=== PATIENT | male | born 1950 | race Hispanic/Latino ===

== ENCOUNTER 2016-09-01 11:08 | Inpatient (IN) | payer MEDICARE, MEDICAID ==
--- NOTE | 2016-09-01 11:42 | ED PDOC ---
HPI: General Adult Time Seen by Provider: 09/01/16 11:22 Chief Complaint (Nursing): Flu-like Symptoms Chief Complaint (Provider): shortness of breath History Per: Patient History/Exam Limitations: no limitations Additional Complaint(s): 65yo male comes to the ED complaining of shortness of breath and fever at home for 2-3 days. Also reports cough with green sputum, body aches, runny nose, sore throat. No chest pain, vomit, diarrhea. PMD: None Past Medical History Reviewed: Historical Data, Nursing Documentation, Vital Signs Vital Signs: Last Vital Signs Temp 98.4 F 09/01/16 15:55 Pulse 79 09/01/16 15:55 Resp 19 09/01/16 15:55 BP 100/52 L 09/01/16 15:55 Pulse Ox 95 09/01/16 15:55 - Medical History PMH: Asthma, COPD Other PMH: "bubble on right lung for 3 year" - Surgical History Other surgeries: pneumothorax - Family History Family History: States: Unknown Family Hx - Social History Drugs: Denies - Immunization History Hx Tetanus Toxoid Vaccination: No Hx Influenza Vaccination: No Hx Pneumococcal Vaccination: No - Home Medications Home Medications: Ambulatory Orders Medication Instructions Recorded Albuterol Sulfate [Albuterol Hfa] 0.09 mg IH BID #60 puff 06/29/14 Albuterol HFA [Ventolin HFA 90 2 puff IH [id number] #60 puff 07/29/16 mcg/actuation (8 g)] Fluticasone/Salmeterol 250/50 1 puff IH Q12 #28 puff 07/29/16 [Advair Diskus] - Allergies Allergies/Adverse Reactions: Allergies Allergy/AdvReac Type Severity Reaction Status Date / Time No Known Allergies Allergy Verified 07/29/16 11:30 Review of Systems ROS Statement: Except As Marked, All Systems Reviewed And Found Negative ENT: Positive for: Nose Discharge, Throat Pain Cardiovascular: Negative for: Chest Pain Respiratory: Positive for: Cough, Sputum Gastrointestinal: Negative for: Vomiting, Diarrhea Physical Exam - Reviewed Nursing Documentation Reviewed: Yes Vital Signs Reviewed: Yes - Physical Exam Appears: Positive for: Well, Non-toxic, No Acute Distress Head Exam: Positive for: ATRAUMATIC, NORMAL INSPECTION, NORMOCEPHALIC Skin: Positive for: Warm, Dry Eye Exam: Positive for: EOMI, PERRL Cardiovascular/Chest: Positive for: Tachycardia. Negative for: Murmur, Irregularly Irregular Respiratory: Positive for: Wheezing (occasional, bilateral). Negative for: Rales, Rhonchi Gastrointestinal/Abdominal: Positive for: Soft. Negative for: Tenderness Extremity: Positive for: Normal ROM Neurologic/Psych: Positive for: Alert, Oriented - Laboratory Results Result Diagrams: 09/01/16 12:00 09/01/16 12:00 - ECG ECG: Positive for: Interpreted By Me, Viewed By Me ECG Rhythm: Positive for: Normal QRS, Sinus Tachycardia. Negative for: ST/T Changes Rate: 119 O2 Sat by Pulse Oximetry: 88 - Radiology X-Ray: Interpreted by Me, Viewed By Me X-Ray Interpretation: Infiltrates (right lower lobe), Other (+chronic right lung bleb) Medical Decision Making Medical Decision Makin Differential includes pneumonia, influenza, COPD exacerbation, plan: EKG, labs, CXR, tylenol, solumedrol, duoneb ordered. [address] Fonseca medicine inclusion special education teacher for placement in Med/Surg. Dx pneumonia Disposition - Clinical Impression Clinical Impression: Pneumonia, COPD with acute exacerbation - Patient ED Disposition Is Patient to be Admitted: Yes Doctor Will See Patient In The: Hospital Counseled Patient/Family Regarding: Studies Performed, Diagnosis - Disposition Disposition Time: 14:48 Condition: FAIR - Pt Status Changed To: Hospital Disposition Of: Inpatient - Admit Certification Admit to Inpatient:: After my assessment, the patient will require hospitalization for at least two midnights. This is because of the severity of symptoms shown, intensity of services needed, and/or the medical risk in this patient being treated as an outpatient. - POA Present On Arrival: None Core Measure Indicators: Pneumonia Additional Comments - Additional Comments Additional Comments: Scribe Attestation Documented by Bernard Navarro, acting as a scribe for Néstor Quintero MD. Provider Scribe Attestation All medical record entries made by the Scribe were at my direction and personally dictated by me. I have reviewed the chart and agree that the record accurately reflects my personal performance of the history, physical exam, medical decision making, and the department course for this patient. I have also personally directed, reviewed, and agree with the discharge instructions and disposition.
[2016-09-01] MEDS ORDERED: Albuterol-Ipratrop 3 mg / 0.5 (3 ml) UD INH STA (11:47)
[2016-09-01] MEDS ORDERED: Albuterol-Ipratrop 3 mg / 0.5 (3 ml) UD ONE (12:14)
[2016-09-01 12:16] LABS: BASO % 0.6 % (0.0-2.0); HEMATOCRIT 43.3 % (35.0-51.0); LYMPH # 0.4 K/uL (1.0-4.3); LYMPH % 6.5 % (20.0-40.0); MEAN CELL VOLUME 87.3 fl (80.0-94.0); MEAN CORPUSCULAR HEMOGLOBIN 28.5 pg (27.0-31.0); MEAN CORPUSCULAR HGB CONC 32.6 g/dL (33.0-37.0); MEAN PLATELET VOLUME 8.3 fl (7.2-11.7); MONO # 0.4 K/uL (0.0-0.8); MONO % 7.2 % (0.0-10.0); NEUT # 5.2 K/uL (1.8-7.0); NEUT % 85.7 % (50.0-75.0); NRBC % 0.1 % (0.0-0.0); WHITE BLOOD COUNT 6.1 K/uL (4.8-10.8)
[2016-09-01 12:20] LABS: BLOOD UREA NITROGEN 10 mg/dl (9-20); CALCIUM 9.1 mg/dL (8.4-10.2); CARBON DIOXIDE 28 mmol/L (22-30); CHLORIDE 102 mmol/L (98-107); GFR AFRICAN-AMERICAN > 60; GLUCOSE,RANDOM 100 mg/dL (75-110); POTASSIUM 4.2 MMOL/L (3.6-5.0); SODIUM 144 mmol/l (132-148)
[2016-09-01 12:33] LABS: PLATELET COUNT 113 K/uL (130-400)
--- NOTE | 2016-09-01 15:31 | RAD ---
HISTORY: dyspnea COMPARISON: 07/29/2016 TECHNIQUE: Chest PA and lateral FINDINGS: LUNGS: Re-demonstration of severe right upper lung field bullous disease. PLEURA: No significant pleural effusion identified. No pneumothorax apparent. CARDIOVASCULAR: Normal. OSSEOUS STRUCTURES: No significant abnormalities. VISUALIZED UPPER ABDOMEN: Normal. OTHER FINDINGS: None. IMPRESSION: Re-demonstration of severe right upper lung field bullous disease.
[2016-09-01 16:44] LABS: TOTAL CELLS COUNTED 100
[2016-09-01 16:45] LABS: EOSINOPHIL 1 % (0-7); NEUTROPHIL 84 % (42-75)
[2016-09-01] MEDS: methylPREDNISolone 60 MG in Sodium Chloride 0.9% 50 ML IVPB SCH (23:00)
[2016-09-02] MEDS: Albuterol-Ipratrop 3 mg / 0.5 (3 ml) UD INH SCH ×4 (01:08→19:04)
[2016-09-02] MEDS: methylPREDNISolone 60 MG in Sodium Chloride 0.9% 50 ML IVPB SCH ×4 (05:08→21:57)
[2016-09-02] MEDS: Enoxaparin 40 mg Syringe SC SCH (09:05)
[2016-09-02] MEDS ORDERED: Sodium Chloride 3% for Inhalation 4 ML VIAL.NEB IH PRN (09:20)
[2016-09-02] MEDS: Pantoprazole 40 mg EC Tab PO SCH (10:38)
[2016-09-02] MEDS ORDERED: Iohexol 300 100 ML IJ ONE (15:35)
[2016-09-02] MEDS ORDERED: Sodium Chloride 0.9% 50 ML IV ONE (15:42)
--- NOTE | 2016-09-02 16:56 | HP ---
CHIEF COMPLAINT: Shortness of breath. HISTORY OF PRESENT ILLNESS: This is a 65-year-old male who was feeling sick for a few days and then was having cough, sore throat, green sputum, generalized body aches, malaise and then patient started having shortness of breath, so patient was brought to the Emergency Room and was admitted for furthe r management. REVIEW OF SYSTEMS: Positive for fever, malaise, generalized weakness, cough, sore throat, yellow spu yany. Review of systems otherwise is negative for headache, dizziness, syncope, loss of consciousness , chest pain, nausea, vomiting, diarrhea, constipation, any new joint or extremity pain. Review of s ystems of all other organ systems is unremarkable. PAST MEDICAL HISTORY: Significant for bronchial asthma, COPD. PAST SURGICAL HISTORY: Unremarkable, except pneumothorax. PERSONAL HISTORY: The patient is currently smoking. No alcohol or substance abuse. MEDICATIONS: The patient is on albuterol and fluticasone. ALLERGIES: The patient is not allergic to any medication. FAMILY HISTORY: Noncontributory. PHYSICAL EXAMINATION: GENERAL: Malnourished looking 65-year-old male in no acute distress. VITAL SIGNS: Temperature 97.2, pulse 66, respirations 20, blood pressure 97/64, saturation 99%. HEENT: The patient has . Pupils reacting to light. No nystagmus. Normocephalic, atraumatic s kull. NECK: No JVD, no thyromegaly, no lymphadenopathy. HEART: S1, S2 normal, regular. No significant m urmur, gallop or rub is heard. LUNGS: Shows posterior, the patient has left lower lobe crepitations. Shows good bilateral air entr y. rales or rhonchi. ABDOMEN: Soft, nontender, no organomegaly, no fluid. Bowel sounds are plus. EXTREMITIES: No edema, no calf swelling, no tenderness, no acute ischemia. CENTRAL NERVOUS SYSTEM: The patient is alert, awake, oriented x 3. There is no sign of any acute gr oss focal motor or sensory neurological deficit. DIAGNOSTIC DATA: Includes chest x-ray which shows right lung emphysema and bleb. ADMITTING IMPRESSION: Left lower lobe pneumonia, upper respiratory tract infection, chronic obstruct courtney pulmonary disease. PLAN: As ordered. Case and plan discussed with patient. Ronald Fonseca MD cc: [id number] TT: 09/02/2016 16:55:13 [facility] # [id number] mn
[2016-09-03] MEDS: Albuterol-Ipratrop 3 mg / 0.5 (3 ml) UD INH SCH ×4 (01:00→19:53)
[2016-09-03] MEDS: methylPREDNISolone 60 MG in Sodium Chloride 0.9% 50 ML IVPB SCH ×4 (03:59→22:05)
[2016-09-03 07:06] LABS: ALB/GLOB RATIO 1.3 (1.0-2.1); ALKALINE PHOSPHATASE 52 U/L (38-126); ALT/SGPT 28 U/L (21-72); AST/SGOT 20 U/L (17-59); BILIRUBIN,TOTAL 0.3 mg/dl (0.2-1.3); BLOOD UREA NITROGEN 16 mg/dl (9-20); CALCIUM 9.2 mg/dL (8.4-10.2); CARBON DIOXIDE 24 mmol/L (22-30); CHLORIDE 105 mmol/L (98-107); GFR AFRICAN-AMERICAN > 60; GLUCOSE,RANDOM 156 mg/dL (75-110); POTASSIUM 4.2 MMOL/L (3.6-5.0); SODIUM 143 mmol/l (132-148); TOTAL PROTEIN 6.7 G/DL (6.3-8.2)
[2016-09-03 07:08] LABS: HEMATOCRIT 38.3 % (35.0-51.0); MEAN CELL VOLUME 86.1 fl (80.0-94.0); MEAN CORPUSCULAR HEMOGLOBIN 28.7 pg (27.0-31.0); MEAN CORPUSCULAR HGB CONC 33.3 g/dL (33.0-37.0); RED CELL DISTRIBUTION WIDTH 13.1 % (11.5-14.5); WHITE BLOOD COUNT 11.9 K/uL (4.8-10.8)
--- NOTE | 2016-09-03 08:08 | CARD ---
APPROVED REPORT EKG Measurement Heart [id number] <Conclusion> Sinus tachycardia Otherwise normal ECG
[2016-09-03] MEDS: Enoxaparin 40 mg Syringe SC SCH (09:05)
[2016-09-03] MEDS: Pantoprazole 40 mg EC Tab PO SCH (09:06)
--- NOTE | 2016-09-03 10:34 | PN ---
DATE: 09/03/2016 The patient seen and examined. Interim events noted. The patient feels better, breathing improved. Chest pain decreased, coughing less, able to ambulate a little more to the bathroom and around the h all. PHYSICAL EXAMINATION: GENERAL: The patient is in no acute distress. VITAL SIGNS: Stable. HEART: S1, S2 normal, regular. LUNGS: Good bilateral air exchange. ABDOMEN: Soft, nontender. EXTREMITIES: No edema, no calf swelling, no tenderness. No acute ischemia. CENTRAL NERVOUS SYSTEM: Essentially unchanged. LUNGS: Some posterior increased breath sounds and crepitations. DIAGNOSTIC DATA: Available diagnostic data reviewed. CAT scan is done. Results are pending. HIV t est is negative. Overall, patient's general medical condition is slowly improving. PLAN: As ordered. Ronald Fonseca MD cc: [id number] TT: 09/03/2016 10:34:01 Confirmation # [id number] Dictation # [id number] mn
--- NOTE | 2016-09-03 11:12 | CT ---
PROCEDURE: CT Chest with contrast HISTORY: pna COMPARISON: Comparison is made to the previous chest x-ray dated 09/01/2016 TECHNIQUE: Contiguous axial images were obtained through the chest with intravenous contrast enhancement. Sagittal and coronal reconstructions were performed. IV contrast: 90 mL of Omnipaque 300 Radiation dose (DLP): 293.87 mGy-cm. FINDINGS: LUNGS: There are severe emphysematous changes predominant in the upper lobe lobes associated with large bullae especially at the right mid and upper peripheral chest. There are patchy airspace consolidation at the right lower lobe highly suspicious for pneumonia. MEDIASTINUM: The thoracic aorta is ectatic and tortuous. Normal sized heart. Main pulmonary artery unremarkable. No vascular congestion. No lymphadenopathy. PLEURA: Trace right pleural effusion is noted. BONES: No fracture. No destructive lesion. UPPER ABDOMEN: Grossly unremarkable. OTHER FINDINGS: None. IMPRESSION: Severe emphysema predominant in the upper lobes associated with large bullae particularly at the right chest. Foci of airspace consolidation seen at the right lower lobe suspicious for pneumonia. Small neoplasm is not totally excluded. Follow-up study after treatment is suggested to document complete resolving of these consolidation. Trace right pleural effusion.
[2016-09-04] MEDS: Albuterol-Ipratrop 3 mg / 0.5 (3 ml) UD INH SCH ×4 (01:30→19:34)
[2016-09-04] MEDS: methylPREDNISolone 60 MG in Sodium Chloride 0.9% 50 ML IVPB SCH (04:56)
[2016-09-04 08:14] LABS: HEMATOCRIT 39.6 % (35.0-51.0); MEAN CORPUSCULAR HEMOGLOBIN 28.8 pg (27.0-31.0); MEAN CORPUSCULAR HGB CONC 33.1 g/dL (33.0-37.0); RED CELL DISTRIBUTION WIDTH 13.4 % (11.5-14.5)
[2016-09-04] MEDS: Pantoprazole 40 mg EC Tab PO SCH (08:33)
[2016-09-04] MEDS: Enoxaparin 40 mg Syringe SC SCH (08:33)
[2016-09-04 08:35] LABS: ALB/GLOB RATIO 1.4 (1.0-2.1); ALKALINE PHOSPHATASE 66 U/L (38-126); ALT/SGPT 35 U/L (21-72); AST/SGOT 34 U/L (17-59); BILIRUBIN,TOTAL 0.3 mg/dl (0.2-1.3); BLOOD UREA NITROGEN 14 mg/dl (9-20); CALCIUM 9.5 mg/dL (8.4-10.2); CARBON DIOXIDE 25 mmol/L (22-30); CHLORIDE 106 mmol/L (98-107); GFR AFRICAN-AMERICAN > 60; GLUCOSE,RANDOM 121 mg/dL (75-110); POTASSIUM 4.3 MMOL/L (3.6-5.0); SODIUM 146 mmol/l (132-148); TOTAL PROTEIN 6.4 G/DL (6.3-8.2)
--- NOTE | 2016-09-04 08:58 | CP.PCM.PN ---
Subjective - Date & Time of Evaluation Date of Evaluation: 09/04/16 Time of Evaluation: 08:00 - Subjective Subjective: pt seen and examined at bedside this morning, states he feels a lot better, breathing a lot easier. does not have any complaints Objective - Vital Signs/Intake and Output Vital Signs (last 24 hours): Temp Pulse Resp BP Pulse Ox 98.1 F 83 18 123/76 95 09/04/16 08:18 09/04/16 08:18 09/04/16 08:18 09/04/16 08:18 09/04/16 08:18 - Medications Medications: Current Medications Acetaminophen (Tylenol 325mg Tab) 325 mg PO Q4 PRN PRN Reason: Fever >100.4 F Acetaminophen (Tylenol 325mg Tab) 650 mg PO Q4 PRN PRN Reason: Pain, Mild (1-3) Albuterol/Ipratropium (Duoneb 3 Mg/0.5 Mg (3 Ml) Ud) 3 ml INH RQ6 [facility] Last Admin: 09/04/16 07:42 Dose: 3 ml Enoxaparin Sodium (Lovenox) 40 mg SC DAILY [facility] PRN Reason: Protocol Last Admin: 09/04/16 08:33 Dose: 40 mg Levofloxacin/Dextrose (Levaquin 500mg) 100 mls @ 100 mls/hr IVPB DAILY [facility] Last Admin: 09/04/16 08:33 Dose: 100 mls/hr Pantoprazole Sodium (Protonix Ec Tab) 40 mg PO DAILY [facility] Last Admin: 09/04/16 08:33 Dose: 40 mg Prednisone (Prednisone Tab) 40 mg PO DAILY [facility] - Labs Labs: 09/04/16 07:45 09/04/16 07:45 - Constitutional Appears: Non-toxic, No Acute Distress - Head Exam Head Exam: NORMOCEPHALIC - Eye Exam Eye Exam: Normal appearance - ENT Exam ENT Exam: Mucous Membranes Moist - Respiratory Exam Respiratory Exam: Clear to Ausculation Bilateral, NORMAL BREATHING PATTERN. absent: Rhonchi, Wheezes - Cardiovascular Exam Cardiovascular Exam: REGULAR RHYTHM, +S1, +S2 - GI/Abdominal Exam GI & Abdominal Exam: Soft, Normal Bowel Sounds - Extremities Exam Extremities Exam: absent: Calf Tenderness, Pedal Edema - Neurological Exam Neurological Exam: Alert, Awake, Oriented x3 Assessment and Plan - Assessment and Plan (Free Text) Assessment: 65 y/o male with history of COPD admitted for pneumonia (CAP) Plan: SOB most likely due to Pneumonia and underlying COPD Steriod taper Continue antibiotic respiratory treatments as needed Diet- regular DVT prophylaxis- Lovenox
[2016-09-04] MEDS ORDERED: methylPREDNISolone 60 MG in Sodium Chloride 0.9% 50 ML IVPB SCH (09:00)
[2016-09-05] MEDS: Albuterol-Ipratrop 3 mg / 0.5 (3 ml) UD INH SCH ×2 (01:00→07:29)
[2016-09-05 08:04] VITALS: BP 127/73; RESP 20; TEMP 97.8
[2016-09-05] MEDS: Enoxaparin 40 mg Syringe SC SCH (09:22)
[2016-09-05] MEDS: Pantoprazole 40 mg EC Tab PO SCH (09:23)
[2016-09-05 10:58] VITALS: PULSE 98; O2SAT 96
--- NOTE | 2016-09-05 12:53 | CP.PCM.DIS ---
Provider - Provider Date of Admission: 09/01/16 14:46 Attending physician: Ronald Fonseca MD Time Spent in preparation of Discharge (in minutes): 30 Diagnosis - Discharge Diagnosis (1) Pneumonia Status: Acute Hospital Course - Lab Results Lab Results: Micro Results 09/02/16 08:16 Sputum Gram Stain - Final 09/02/16 08:16 Sputum Sputum Culture - Final Yeast Species Most Recent Lab Values WBC 12.0 K/uL (4.8-10.8) H 09/04/16 07:45 RBC 4.55 Mil/uL (4.40-5.90) 09/04/16 07:45 Hgb 13.1 g/dL (12.0-18.0) 09/04/16 07:45 Hct 39.6 % (35.0-51.0) 09/04/16 07:45 MCV 87.0 fl (80.0-94.0) 09/04/16 07:45 MCH 28.8 pg (27.0-31.0) 09/04/16 07:45 MCHC 33.1 g/dL (33.0-37.0) 09/04/16 07:45 RDW 13.4 % (11.5-14.5) 09/04/16 07:45 Plt Count 151 K/uL (130-400) 09/04/16 07:45 MPV 8.3 fl (7.2-11.7) 09/01/16 12:00 Neut % (Auto) 85.7 % (50.0-75.0) H 09/01/16 12:00 Lymph % (Auto) 6.5 % (20.0-40.0) L 09/01/16 12:00 Sanders % (Auto) 7.2 % (0.0-10.0) 09/01/16 12:00 Eos % (Auto) 0.0 % (0.0-4.0) 09/01/16 12:00 Baso % (Auto) 0.6 % (0.0-2.0) 09/01/16 12:00 Neut # 5.2 K/uL (1.8-7.0) 09/01/16 12:00 Lymph # 0.4 K/uL (1.0-4.3) L 09/01/16 12:00 Sanders # 0.4 K/uL (0.0-0.8) 09/01/16 12:00 Eos # 0.0 K/uL (0.0-0.7) 09/01/16 12:00 Baso # 0.0 K/uL (0.0-0.2) 09/01/16 12:00 Neutrophils % (Manual) 84 % (42-75) H 09/01/16 12:00 Band Neutrophils % 2 % (0-2) 09/01/16 12:00 Lymphocytes % (Manual) 7 % (20-50) L 09/01/16 12:00 Monocytes % (Manual) 6 % (0-10) 09/01/16 12:00 Eosinophils % (Manual) 1 % (0-7) 09/01/16 12:00 Platelet Estimate Decreased (NORMAL) L 09/01/16 12:00 RBC Morphology Normal (NORMAL) 09/01/16 12:00 Sodium 146 mmol/l (132-148) 09/04/16 07:45 Potassium 4.3 MMOL/L (3.6-5.0) 09/04/16 07:45 Chloride 106 mmol/L (98-107) 09/04/16 07:45 Carbon Dioxide 25 mmol/L (22-30) 09/04/16 07:45 Anion Gap 19 (10-20) 09/04/16 07:45 BUN 14 mg/dl (9-20) 09/04/16 07:45 Creatinine 0.6 mg/dL (0.8-1.5) L 09/04/16 07:45 Est GFR ( Amer) > 60 09/04/16 07:45 Est GFR (Non-Af Amer) > 60 09/04/16 07:45 Random Glucose 121 mg/dL (75-110) H 09/04/16 07:45 Calcium 9.5 mg/dL (8.4-10.2) 09/04/16 07:45 Total Bilirubin 0.3 mg/dl (0.2-1.3) 09/04/16 07:45 AST 34 U/L (17-59) 09/04/16 07:45 ALT 35 U/L (21-72) 09/04/16 07:45 Alkaline Phosphatase 66 U/L (38-126) 09/04/16 07:45 Total Protein 6.4 G/DL (6.3-8.2) 09/04/16 07:45 Albumin 3.8 g/dL (3.5-5.0) 09/04/16 07:45 Globulin 2.7 gm/dL (2.2-3.9) 09/04/16 07:45 Albumin/Globulin Ratio 1.4 (1.0-2.1) 09/04/16 07:45 HIV-1 Ab Rapid Screen Non reactive (NON REAC) 09/02/16 10:20 Influenza Typ A,B (EIA) Negative for flu a/b (NEGATIVE) 09/01/16 12:00 - Hospital Course Hospital Course: Pt was admitted for CAP started on antibiotic and steriod given history of COPD. remain stable throughout stay. is being discharged with steriod taper and antibiotics. Discharge Exam - Head Exam Head Exam: NORMOCEPHALIC - Eye Exam Eye Exam: Normal appearance Pupil Exam: NORMAL ACCOMODATION - ENT Exam ENT Exam: Mucous Membranes Moist - Respiratory Exam Respiratory Exam: NORMAL BREATHING PATTERN - Cardiovascular Exam Cardiovascular Exam: REGULAR RHYTHM, +S1, +S2 - GI/Abdominal Exam GI & Abdominal Exam: Normal Bowel Sounds, Soft - Neurological Exam Neurological exam: Alert, CN II-XII Intact, Oriented x3 Discharge Plan - Discharge Medications Prescriptions: Levofloxacin [Levaquin] 500 mg PO DAILY #6 tablet Methylprednisolone [Medrol Dose Pack (21 tabs)] 4 mg PO DAILY #21 mg Pantoprazole [Protonix EC Tab] 40 mg PO DAILY #14 ect - Follow Up Plan Condition: FAIR Disposition: HOME/ ROUTINE Instructions: Community Acquired Pneumonia (DC) Additional Instructions: Please follow up with your PCP in 1-2weeks
== END 2016-09-05 13:53 | disposition home or self-care (01) | DRG 190 ==
LOC: H.ER 11:08 → H.ERHOLD 14:46 → H.MEDSURG1 20:35
PROVIDERS: ADMIT Internal Medicine; ATTEND Internal Medicine
DX: J44.0 Chronic obstructive pulmonary disease with (acute) lower respiratory infection (principal); J18.9 Pneumonia, unspecified organism; J45.909 Unspecified asthma, uncomplicated

== ENCOUNTER 2016-09-22 01:36 | Emergency (ER) | payer SELFPAY ==
[2016-09-22 01:58] VITALS: BP 123/76; PULSE 95; RESP 19; TEMP 98.2
[2016-09-22] MEDS ORDERED: Albuterol-Ipratrop 3 mg / 0.5 (3 ml) UD INH STA ×2 (02:28→02:29)
--- NOTE | 2016-09-22 02:35 | ED PDOC ---
HPI: SOB/CHF/COPD Time Seen by Provider: 09/22/16 01:56 Chief Complaint (Nursing): Shortness Of Breath Chief Complaint (Provider): SOB History Per: Patient History/Exam Limitations: no limitations Onset/Duration Of Symptoms: Days (2) Current Symptoms Are (Timing): Other (worse) Initiating Event: Out Of Medications (ran out of meds) Current Respiratory Medications: See Home Med List Pain Scale Rating Of: 0 Associated Symptoms: denies: Fever, Chest Pain, Productive Cough, Heart Racing, Dizziness, Light-headedness Additional Complaint(s): 65 y/o with PMHx of COPD, smoker, presents to the ED c/o SOB for the past 2 days worse today. Patient admits he ran out of his meds. Denies CP, palpitations , headaches, dizziness, vomiting or nausea. Patient was admitted in the hosp 3 weeks ago for Pneumonia. He also has Hx of L/pneumothorax many years ago. Past Medical History Vital Signs: Last Vital Signs Temp 98.2 F 09/22/16 01:52 Pulse 95 H 09/22/16 01:52 Resp 19 09/22/16 01:52 BP 123/76 09/22/16 01:52 Pulse Ox 96 09/22/16 03:36 - Medical History PMH: Asthma, COPD Denies: Chronic Kidney Disease - Surgical History Other surgeries: L/Pneumothorax - Family History Family History: States: Unknown Family Hx - Living Arrangements Living Arrangements: Other ([facility]) - Social History Current smoker - smoking cessation education provided: Yes Alcohol: < 2 Drinks/Day Drugs: Denies - Immunization History Hx Tetanus Toxoid Vaccination: No Hx Influenza Vaccination: No Hx Pneumococcal Vaccination: No - Home Medications Home Medications: Ambulatory Orders Medication Instructions Recorded Albuterol Sulfate [Albuterol 0.09 mg IH BID #60 puff 06/29/14 Sulfate Hfa] Albuterol HFA [Ventolin HFA 90 2 puff IH [id number] #60 puff 07/29/16 mcg/actuation (8 g)] Fluticasone/Salmeterol 250/50 1 puff IH Q12 #28 puff 07/29/16 [Advair Diskus 250/50] Levofloxacin [Levaquin] 500 mg PO DAILY #6 tablet 09/05/16 Methylprednisolone [Medrol Dose 4 mg PO DAILY #21 mg 09/05/16 Pack (21 tabs)] Pantoprazole [Protonix EC Tab] 40 mg PO DAILY #14 ect 09/05/16 Albuterol HFA [Ventolin HFA 90 1 - 2 puff IH Q6 PRN #1 inhaler 09/22/16 mcg/actuation (8 g)] Methylprednisolone [Medrol Dosepak] 4 mg PO ASDIR #1 pkg 09/22/16 - Allergies Allergies/Adverse Reactions: Allergies Allergy/AdvReac Type Severity Reaction Status Date / Time No Known Allergies Allergy Verified 07/29/16 11:30 Wells Criteria for PE - Wells Criteria for Pulmonary Embolism Clinical Signs and Symptoms of DVT: Yes P.E is #1 Diagnosis, or Equally Likely: No Heart Rate >100: No Immobilization at least 3 days;Surgery previous 4 weeks: No Previous, objectively diagnosed PE or DVT: No Hemoptysis: No Malignancy w/treatment within 6 months, or palliative: No Total Score: 3 Review of Systems Constitutional: Negative for: Fever, Chills, Sweats Eyes: Negative for: Vision Change ENT: Negative for: Throat Pain Cardiovascular: Negative for: Chest Pain, Palpitations, Edema Gastrointestinal: Negative for: Vomiting, Abdominal Pain Skin: Negative for: Rash Neurological: Negative for: Weakness, Change in Speech Psych: Negative for: Depression Physical Exam - Reviewed Vital Signs Reviewed: Yes - Physical Exam Appears: Positive for: Non-toxic, Uncomfortable (SOB) Head Exam: Positive for: NORMAL INSPECTION Skin: Positive for: Normal Color, Warm Eye Exam: Positive for: PERRL. Negative for: Nystagmus Cardiovascular/Chest: Positive for: Regular Rate, Rhythm. Negative for: Murmur Respiratory: Positive for: Decreased Breath Sounds, Wheezing. Negative for: Crackles Gastrointestinal/Abdominal: Positive for: Normal Exam Neurologic/Psych: Positive for: Alert, Oriented. Negative for: Motor/Sensory Deficits, Aphasia - Laboratory Results Result Diagrams: 09/22/16 02:25 09/22/16 02:25 - ECG O2 Sat by Pulse Oximetry: 95 Disposition - Clinical Impression Clinical Impression: COPD (chronic obstructive pulmonary disease) - Disposition Disposition Time: 07:00 Condition: STABLE Prescriptions: Albuterol HFA [Ventolin HFA 90 mcg/actuation (8 g)] 1 - 2 puff IH Q6 PRN #1 inhaler PRN Reason: Shortness Of Breath Methylprednisolone [Medrol Dosepak] 4 mg PO ASDIR #1 pkg Instructions: COPD (Chronic Obstructive Pulmonary Disease) (ED)
[2016-09-22] MEDS ORDERED: Albuterol-Ipratrop 3 mg / 0.5 (3 ml) UD ONE (02:56)
[2016-09-22 03:37] LABS: BASO % 0.6 % (0.0-2.0); HEMATOCRIT 42.3 % (35.0-51.0); LYMPH % 24.5 % (20.0-40.0); MEAN CELL VOLUME 86.5 fl (80.0-94.0); MEAN CORPUSCULAR HEMOGLOBIN 28.7 pg (27.0-31.0); MEAN CORPUSCULAR HGB CONC 33.2 g/dL (33.0-37.0); MEAN PLATELET VOLUME 8.5 fl (7.2-11.7); MONO # 0.6 K/uL (0.0-0.8); MONO % 15.2 % (0.0-10.0); NEUT # 2.3 K/uL (1.8-7.0); NEUT % 58.7 % (50.0-75.0); NRBC % 0.1 % (0.0-0.0); RED CELL DISTRIBUTION WIDTH 13.4 % (11.5-14.5); WHITE BLOOD COUNT 3.9 K/uL (4.8-10.8)
[2016-09-22 03:42] LABS: CHLORIDE 106 mmol/L (98-107); SODIUM 146 mmol/l (132-148)
[2016-09-22 03:43] LABS: POTASSIUM 4.1 MMOL/L (3.6-5.0)
[2016-09-22 03:45] LABS: ALB/GLOB RATIO 1.6 (1.0-2.1); ALKALINE PHOSPHATASE 71 U/L (38-126); AST/SGOT 31 U/L (17-59); BILIRUBIN,TOTAL 0.3 mg/dl (0.2-1.3); BLOOD UREA NITROGEN 12 mg/dl (9-20); CARBON DIOXIDE 23 mmol/L (22-30); GFR AFRICAN-AMERICAN > 60; TOTAL PROTEIN 7.6 G/DL (6.3-8.2)
[2016-09-22 03:46] LABS: ALT/SGPT 29 U/L (21-72); CALCIUM 8.9 mg/dL (8.4-10.2); GLUCOSE,RANDOM 80 mg/dL (75-110)
--- NOTE | 2016-09-22 12:29 | RAD ---
HISTORY: SOB COMPARISON: 09/01/2016 single-view chest. 09/02/2016 CT thorax FINDINGS: LUNGS: Hyperinflation, of bullous changes upper lobe predilection right greater than left. Infiltrates apparent on the prior study right lower lobe have resolved. PLEURA: No significant pleural effusion identified, no pneumothorax apparent. CARDIOVASCULAR: No radiographic findings to suggest acute or significant cardiovascular disease. OSSEOUS STRUCTURES: No significant abnormalities. VISUALIZED UPPER ABDOMEN: Normal. OTHER FINDINGS: None. IMPRESSION: No active disease. Resolution of right lower lobe airspace disease identified previously.
--- NOTE | 2016-09-22 23:04 | CARD ---
APPROVED REPORT EKG Measurement Heart [id number] <Conclusion> Sinus tachycardia Consider electrical alternans Otherwise normal ECG
[2016-10-02 14:20] VITALS: O2SAT 95
== END 2016-09-22 04:40 | disposition home or self-care (01) ==
LOC: H.ER 01:36
DX: J44.9 Chronic obstructive pulmonary disease, unspecified (principal); F17.210 Nicotine dependence, cigarettes, uncomplicated
CPT/HCPCS: 71010; 80053; 85025; 93005; 96374; 99283; J2930

== ENCOUNTER 2016-10-06 06:44 | Observation (INO) | payer SELFPAY ==
[2016-10-06] MEDS ORDERED: Naloxone 0.4 mg/ml Inj (Adult) IVP STA (06:58)
[2016-10-06] MEDS ORDERED: Albuterol-Ipratrop 3 mg / 0.5 (3 ml) UD INH STA (06:58)
[2016-10-06] MEDS ORDERED: Albuterol-Ipratrop 3 mg / 0.5 (3 ml) UD ONE (06:59)
--- NOTE | 2016-10-06 07:02 | ED PDOC ---
HPI: Altered Mental Status Time Seen by Provider: 10/06/16 06:57 Chief Complaint (Nursing): Substance Abuse Chief Complaint (Provider): Altered mental status History Per: Patient History/Exam Limitations: Clinical Condition Onset/Duration Of Symptoms: Unknown Onset Of Symptoms: Cannot Confirm Onset Current Symptoms Are (Timing): Still Present Description Of Symptoms: Other (obtunded, able to make voluntary motions, aggitated at times) Exacerbating Factor(s): Unknown (possible drug use) Severity: Moderate Associated Symptoms: Dyspnea, Combative Additional Complaint(s): 65 year old male with a pertinent medical history of COPD (as per previous ED visits) is brought into the ED for an altered ,mental status. HPI is limited as per patient and EMS. EMS found him when he was in altered mental status while combative with pinpoint pupils. PMD: unable to obtain due to AMS Past Medical History Reviewed: Historical Data, Nursing Documentation, Vital Signs Vital Signs: Last Vital Signs Temp 97.6 F 10/06/16 06:50 Pulse 118 H 10/06/16 06:50 Resp 24 10/06/16 06:50 BP 165/93 H 10/06/16 06:50 Pulse Ox 97 10/06/16 06:50 - Medical History PMH: Asthma, COPD Denies: Chronic Kidney Disease - Surgical History Surgical History: No Surg Hx - Family History Family History: States: Unknown Family Hx - Immunization History Hx Tetanus Toxoid Vaccination: No Hx Influenza Vaccination: No Hx Pneumococcal Vaccination: No - Home Medications Home Medications: Ambulatory Orders Medication Instructions Recorded Fluticasone/Salmeterol 250/50 1 puff IH Q12 #28 puff 07/29/16 [Advair Diskus 250/50] Methylprednisolone [Medrol Dose 4 mg PO DAILY #21 mg 09/05/16 Pack (21 tabs)] Pantoprazole [Protonix EC Tab] 40 mg PO DAILY #14 ect 09/05/16 Albuterol HFA [Ventolin HFA 90 1 - 2 puff IH Q6 PRN #1 inhaler 09/22/16 mcg/actuation (8 g)] Methylprednisolone [Medrol Dosepak] 4 mg PO ASDIR #1 pkg 09/22/16 Albuterol HFA [Ventolin HFA 90 2 puff IH [id number] PRN #1 bottle 10/06/16 mcg/actuation (8 g)] - Allergies Allergies/Adverse Reactions: Allergies Allergy/AdvReac Type Severity Reaction Status Date / Time No Known Allergies Allergy Verified 10/06/16 08:07 Review of Systems Review Of Systems: ROS cannot be obtained secondary to pt's inabilty to answer questions. Neurological: Positive for: Altered Mental Status Physical Exam - Reviewed Nursing Documentation Reviewed: Yes Vital Signs Reviewed: Yes - Physical Exam Appears: Positive for: Non-toxic, In Acute Distress (mild repiratory distress). Negative for: Well (obtunded) Head Exam: Positive for: ATRAUMATIC, NORMOCEPHALIC Eye Exam: Positive for: Other (pinpoint pupils) Cardiovascular/Chest: Positive for: Tachycardia (regular rhythm) Respiratory: Positive for: Respiratory Distress (mild), Other (coarse breath sounds) Neurologic/Psych: Positive for: Other (able to volunatrily move, agitated at times) - Laboratory Results Result Diagrams: 10/06/16 07:00 10/06/16 07:00 - ECG ECG: Positive for: Interpreted By Me, Viewed By Me ECG Rhythm: Positive for: Normal QRS, Sinus Rhythm (rate of 99). Negative for: ST/T Changes O2 Sat by Pulse Oximetry: 97 (RA) Pulse Ox Interpretation: Normal - Critical Care Total Time (In Min): 30 Medical Decision Making Medical Decision Makin:57 Initial impression: 65 year old male with altered mental status. Differential diagnoses include but are not limited to possible substance abuse: opioids vs alcohol. Other causes of of AMS are considered but not listed. Initial plan: * ABG * EKG * alcohol serum * CMP * drug screen urinary * CBC * XRay chest one view * duoneb 3ml INH * narcan .4mg IVP * peak flow pre post treatment 3x 7:00 Patient is being signed out by me to Dahlia Parnell MD pending XRay, labs, reevaluation and final disposition. 7:03 5 minutes after narcan, patient is awake, alert, and oriented, and able to answer all of the questions. Patient denies any drug use. Scribe Attestation: Documented by Cecille Vazquez, acting as a scribe for Néstor Quintero MD. Provider Scribe Attestation: All medical record entries made by the Scribe were at my direction and personally dictated by me. I have reviewed the chart and agree that the record accurately reflects my personal performance of the history, physical exam, medical decision making, and the department course for this patient. I have also personally directed, reviewed, and agree with the discharge instructions and disposition. Disposition - Clinical Impression Clinical Impression: COPD (chronic obstructive pulmonary disease), Opioid abuse - Patient ED Disposition Is Patient to be Admitted: Transfer of Care - Disposition Disposition: Transfer of Care Disposition Time: 07:00 Condition: IMPROVED
[2016-10-06 07:10] LABS: BASO % 0.6 % (0.0-2.0); EOS # 0.3 K/uL (0.0-0.7); EOS % 3.1 % (0.0-4.0); HEMATOCRIT 41.8 % (35.0-51.0); LYMPH # 4.4 K/uL (1.0-4.3); LYMPH % 51.6 % (20.0-40.0); MEAN CELL VOLUME 89.5 fl (80.0-94.0); MEAN CORPUSCULAR HEMOGLOBIN 28.7 pg (27.0-31.0); MEAN CORPUSCULAR HGB CONC 32.1 g/dL (33.0-37.0); MEAN PLATELET VOLUME 8.2 fl (7.2-11.7); MONO # 1.2 K/uL (0.0-0.8); MONO % 13.8 % (0.0-10.0); NEUT # 2.7 K/uL (1.8-7.0); NEUT % 30.9 % (50.0-75.0); RED CELL DISTRIBUTION WIDTH 13.9 % (11.5-14.5); WHITE BLOOD COUNT 8.6 K/uL (4.8-10.8)
--- NOTE | 2016-10-06 07:14 | ED PDOC ---
- Laboratory Results Result Diagrams: 10/06/16 07:00 10/06/16 07:00 - ECG O2 Sat by Pulse Oximetry: 97 (RA) - Radiology X-Ray: Read By Radiologist (No interval change.) - Progress ED Course And Treament: Pt AAOX3, steady gait. Re-evaluation Time: 12:42 Condition: Improved Medical Decision Making Medical Decision Makin:00 Patient is being signed out to me by Néstor Quintero MD pending XRay, labs, reevaluation and final disposition. Scribe Attestation: Documented by Cecille Vazquez, acting as a scribe for Dahlia Parnell MD. Provider Scribe Attestation: All medical record entries made by the Scribe were at my direction and personally dictated by me. I have reviewed the chart and agree that the record accurately reflects my personal performance of the history, physical exam, medical decision making, and the department course for this patient. I have also personally directed, reviewed, and agree with the discharge instructions and disposition. Disposition - Clinical Impression Clinical Impression: COPD (chronic obstructive pulmonary disease), Opioid abuse - POA Present On Arrival: None - Disposition Disposition: Routine/Home Disposition Time: 12:42 Condition: IMPROVED ED OBSERVATION Time of observation admission: 07:00 - Observation admission statement Patient is being placed in observation because:: Intoxication
[2016-10-06 07:22] LABS: ABG ALLEN TEST YES; ARTERIAL BLOOD GAS HCO3 23.1 mmol/L (21-28); ARTERIAL BLOOD GAS O2 CAPACITY 17.1 mL/dL (16-24); ARTERIAL BLOOD GAS O2 CONTENT 16.5 ML/dL (15-23); ARTERIAL BLOOD GAS PH 7.28 (7.35-7.45); ARTERIAL BLOOD GAS PO2 69 mm/Hg (80-100); ARTERIAL BLOOD HGB O2 SAT 90.7 % (95.0-98.0); CARBOXYHEMOGLOBIN 3.7 % (0.5-1.5); HHB 3.4 % (0.0-5.0); METHEMOGLOBIN 2.2 % (0.0-3.0)
[2016-10-06 07:26] LABS: ALB/GLOB RATIO 1.3 (1.0-2.1); ALCOHOL SERUM < 10 mg/dl (0-10); ALKALINE PHOSPHATASE 70 U/L (38-126); ALT/SGPT 23 U/L (21-72); AST/SGOT 30 U/L (17-59); BILIRUBIN,TOTAL 0.5 mg/dl (0.2-1.3); BLOOD UREA NITROGEN 8 mg/dl (9-20); CALCIUM 9.5 mg/dL (8.4-10.2); CARBON DIOXIDE 25 mmol/L (22-30); CHLORIDE 106 mmol/L (98-107); GFR AFRICAN-AMERICAN > 60; GLUCOSE,RANDOM 220 mg/dL (75-110); POTASSIUM 4.7 MMOL/L (3.6-5.0); SODIUM 140 mmol/l (132-148); TOTAL PROTEIN 7.6 G/DL (6.3-8.2)
[2016-10-06 07:29] VITALS: RESP 16; TEMP 98.2
--- NOTE | 2016-10-06 09:58 | RAD ---
PROCEDURE: CHEST RADIOGRAPH, 1 VIEW HISTORY: dyspnea COMPARISON: 09/22/16 FINDINGS: LUNGS: Hyperinflation, of bullous changes upper lobe predilection right greater than left.. PLEURA: No pneumothorax or pleural fluid seen. CARDIOVASCULAR: Normal. OSSEOUS STRUCTURES: No significant abnormalities. VISUALIZED UPPER ABDOMEN: Normal. OTHER FINDINGS: None. IMPRESSION: No interval change.
[2016-10-06 10:11] VITALS: BP 116/73; PULSE 73
--- NOTE | 2016-10-06 10:18 | CARD ---
APPROVED REPORT EKG Measurement Heart [id number] <Conclusion> Normal sinus rhythm Normal ECG
[2016-10-06 12:43] VITALS: O2SAT 97
== END 2016-10-06 13:29 | disposition home or self-care (01) ==
LOC: H.ER 06:44 → H.EROBSV 07:00
PROVIDERS: ADMIT Emergency Medicine; ATTEND Emergency Medicine
DX: F11.10 Opioid abuse, uncomplicated (principal); J44.9 Chronic obstructive pulmonary disease, unspecified
CPT/HCPCS: 71010; 80053; 82803; 85025; 93005; 96374; 99283; G0378; G0480; J2310

== ENCOUNTER 2016-11-26 18:19 | Emergency (ER) | payer SELFPAY ==
[2016-11-26 18:19] VITALS: BMI 19.0
--- NOTE | 2016-11-26 18:45 | ED PDOC ---
HPI: Psych/Substance Abuse Time Seen by Provider: 11/26/16 18:43 Chief Complaint (Nursing): Alcohol Ingestion Chief Complaint (Provider): alcohol ingestion History Per: Patient (66 y/o male here for evaluation of vomiting. Patient admits to etoh intake today. [facility]. States he feels improved currently. Denies any chest pain/abdominal pain/fever/ uri/cough.) Past Medical History Reviewed: Historical Data, Nursing Documentation, Vital Signs Vital Signs: Last Vital Signs Temp 98.1 F 11/26/16 18:37 Pulse 114 H 11/26/16 18:37 Resp 18 11/26/16 18:37 BP 126/88 11/26/16 18:37 Pulse Ox 96 11/26/16 18:37 - Medical History PMH: Asthma, COPD, Pneumonia, Pneumothorax Denies: HIV, Chronic Kidney Disease - Surgical History Surgical History: Tonsillectomy - Family History Family History: States: Unknown Family Hx - Immunization History Hx Tetanus Toxoid Vaccination: No Hx Influenza Vaccination: No Hx Pneumococcal Vaccination: No - Home Medications Home Medications: Ambulatory Orders Medication Instructions Recorded Albuterol HFA [Ventolin HFA 90 1 - 2 puff PO Q4 PRN 11/08/16 mcg/actuation (8 g)] Fluticasone/Salmeterol [Advair 1 each IH BID 11/08/16 250-50 Diskus] Pantoprazole [Protonix EC Tab] 40 mg PO DAILY ect 11/13/16 guaiFENesin [Mucinex LA] 600 mg PO Q12 tab 11/13/16 Methylprednisolone [Medrol Dose 4 mg PO DAILY 11/18/16 Pack (21 tabs)] Tiotropium [place] Inhaler 1 inhaler INH DAILY 11/18/16 [Spiriva Inhalation Handihaler Device] - Allergies Allergies/Adverse Reactions: Allergies Allergy/AdvReac Type Severity Reaction Status Date / Time No Known Allergies Allergy Verified 11/13/16 18:06 Review of Systems ROS Statement: Except As Marked, All Systems Reviewed And Found Negative Gastrointestinal: Positive for: Vomiting Physical Exam - Reviewed Nursing Documentation Reviewed: Yes Vital Signs Reviewed: Yes - Physical Exam Appears: Positive for: Well, Non-toxic, No Acute Distress Head Exam: Positive for: ATRAUMATIC, NORMAL INSPECTION, NORMOCEPHALIC Skin: Positive for: Normal Color, Warm, DRY Eye Exam: Positive for: EOMI, Normal appearance, PERRL ENT: Positive for: Normal ENT Inspection Neck: Positive for: Normal, Painless ROM Cardiovascular/Chest: Positive for: Regular Rate, Rhythm Respiratory: Positive for: CNT, Normal Breath Sounds Gastrointestinal/Abdominal: Positive for: Normal Exam, Bowel Sounds, Soft Back: Positive for: Normal Inspection Extremity: Positive for: Normal ROM Neurologic/Psych: Positive for: Alert, Oriented - ECG O2 Sat by Pulse Oximetry: 96 - Progress ED Course And Treament: Zofran 4mg ODT BS: 114 Patient noted with steady gait in ED. Disposition - Clinical Impression Clinical Impression: Alcohol ingestion - Patient ED Disposition Is Patient to be Admitted: No - Disposition Disposition: Routine/Home Disposition Time: 19:15 Condition: FAIR Instructions: Alcohol Intoxication (GEN)
[2016-11-26 18:52] VITALS: BP 126/88; PULSE 114; RESP 18; TEMP 98.1; O2SAT 96
== END 2016-11-26 19:25 | disposition home or self-care (01) ==
LOC: H.ER 18:19
DX: F10.129 Alcohol abuse with intoxication, unspecified (principal)
CPT/HCPCS: 99281; G0480

== ENCOUNTER 2016-12-21 20:04 | Emergency (ER) | payer MEDICARE ==
[2016-12-21 20:04] VITALS: BMI 19.0
[2016-12-21 20:11] VITALS: BP 114/76; PULSE 103; TEMP 97.5; O2SAT 94
[2016-12-21] MEDS ORDERED: Albuterol-Ipratrop 3 mg / 0.5 (3 ml) UD INH STA ×3 (20:17→20:18)
[2016-12-21] MEDS ORDERED: Magnesium Sulfate 2 GM in Sodium Chloride 0.9% 100 ML IV STA (20:17)
[2016-12-21] MEDS ORDERED: Magnesium Sulfate 2 gm/50 ml 2 GM/50 ML BAG ONE (20:24)
[2016-12-21 20:52] LABS: BASO # 0.1 K/uL (0.0-0.2); BASO % 1.4 % (0.0-2.0); EOS # 0.5 K/uL (0.0-0.7); EOS % 11.2 % (0.0-4.0); HEMATOCRIT 41.8 % (35.0-51.0); LYMPH # 1.8 K/uL (1.0-4.3); LYMPH % 41.4 % (20.0-40.0); MEAN CELL VOLUME 87.1 fl (80.0-94.0); MEAN CORPUSCULAR HEMOGLOBIN 28.9 pg (27.0-31.0); MEAN CORPUSCULAR HGB CONC 33.1 g/dL (33.0-37.0); MEAN PLATELET VOLUME 8.4 fl (7.2-11.7); MONO # 0.5 K/uL (0.0-0.8); MONO % 11.2 % (0.0-10.0); NEUT # 1.5 K/uL (1.8-7.0); NEUT % 34.8 % (50.0-75.0); NRBC % 0.1 % (0.0-0.0); RED CELL DISTRIBUTION WIDTH 13.9 % (11.5-14.5); WHITE BLOOD COUNT 4.4 K/uL (4.8-10.8)
--- NOTE | 2016-12-21 20:56 | ED PDOC ---
HPI: SOB/CHF/COPD Time Seen by Provider: 12/21/16 20:14 Chief Complaint (Nursing): Shortness Of Breath Chief Complaint (Provider): Shortness Of Breath History Per: Patient History/Exam Limitations: no limitations Onset/Duration Of Symptoms: Days (x3) Current Symptoms Are (Timing): Still Present Additional Complaint(s): Sergio Edwards is a 66 year old male with previous medical history of COPD, who presents to the emergency department with a complaint of worsening shortness of breath associated with wheezing, chest tightness, and productive cough (clear phlegm) ongoing for 3 days. Denies any fever, chills, nausea, vomiting, diarrhea , or improvement with inhaler use. Patient admitted to smoking at least 3 cigarettes daily. PMD: none provided Past Medical History Reviewed: Historical Data, Nursing Documentation, Vital Signs Vital Signs: Last Vital Signs Temp 97.5 F L 12/21/16 20:08 Pulse 103 H 12/21/16 20:08 Resp 20 12/21/16 22:06 BP 114/76 12/21/16 20:08 Pulse Ox 94 L 12/21/16 21:54 - Medical History PMH: Asthma, COPD, Pneumonia, Pneumothorax Denies: HIV, Chronic Kidney Disease - Surgical History Surgical History: Tonsillectomy - Family History Family History: States: Unknown Family Hx - Social History Current smoker - smoking cessation education provided: Yes (3 cigarettes/daily) - Immunization History Hx Tetanus Toxoid Vaccination: No Hx Influenza Vaccination: No Hx Pneumococcal Vaccination: No - Home Medications Home Medications: Ambulatory Orders Medication Instructions Recorded Albuterol HFA [Ventolin HFA 90 1 - 2 puff PO Q4 PRN 11/08/16 mcg/actuation (8 g)] Fluticasone/Salmeterol [Advair 1 each IH BID 11/08/16 250-50 Diskus] Pantoprazole [Protonix EC Tab] 40 mg PO DAILY ect 11/13/16 guaiFENesin [Mucinex LA] 600 mg PO Q12 tab 11/13/16 Methylprednisolone [Medrol Dose 4 mg PO DAILY 11/18/16 Pack (21 tabs)] Tiotropium [place] Inhaler 1 inhaler INH DAILY 11/18/16 [Spiriva Inhalation Handihaler Device] Albuterol HFA [Ventolin HFA 90 1 - 2 puff IH Q6 PRN #1 inhaler 12/21/16 mcg/actuation (8 g)] Methylprednisolone [Medrol Dosepak] 4 mg PO ASDIR #1 pkg 12/21/16 - Allergies Allergies/Adverse Reactions: Allergies Allergy/AdvReac Type Severity Reaction Status Date / Time No Known Allergies Allergy Verified 11/13/16 18:06 Review of Systems ROS Statement: Except As Marked, All Systems Reviewed And Found Negative Constitutional: Negative for: Fever, Chills Cardiovascular: Positive for: Chest Pain (tightness) Respiratory: Positive for: Shortness of Breath, Sputum (clear phlegm), Wheezing Gastrointestinal: Negative for: Nausea, Vomiting, Diarrhea Physical Exam - Reviewed Nursing Documentation Reviewed: Yes Vital Signs Reviewed: Yes - Physical Exam Appears: Positive for: Well, Non-toxic, No Acute Distress Head Exam: Positive for: ATRAUMATIC, NORMAL INSPECTION, NORMOCEPHALIC Skin: Positive for: Normal Color, Warm, Dry Cardiovascular/Chest: Positive for: Regular Rate, Rhythm Respiratory: Positive for: Wheezing (diffused bilaterally with decreased airway) , Other (supraclavicular retraction) Neurologic/Psych: Positive for: Alert, manager clinic II-XII, Oriented - Laboratory Results Result Diagrams: 12/21/16 20:44 12/21/16 20:44 - ECG O2 Sat by Pulse Oximetry: 94 (RA) Pulse Ox Interpretation: Normal - Critical Care Total Time (In Min): 30 Medical Decision Making Medical Decision Making: Initial Impression: Acute COPD exacerbation Initial Plan: * EKG * Labs * Duoneb 3ml INH * Magnesium 2gm/100ml IV * Methylprednisolone 125mg IVP * Peak flow pre/post [place] * Re-evaluation Time: 21:30 --Labs: negative for significant abnormality Upon provider reevaluation, patient is feeling remarkably better, is medically stable and requires no further treatment in the ED at this time. Patient will be discharged home. Counseling was provided and all questions were answered regarding diagnosis and need for follow up with clinic in 2 days. There is agreement to discharge plan. Return if symptoms persist or worsen. Clinical Impression: COPD exacerbation Scribe Attestation: Documented by Gail Mas, acting as a scribe for Sebastien Liu MD. Provider Scribe Attestation: All medical record entries made by the Scribe were at my direction and personally dictated by me. I have reviewed the chart and agree that the record accurately reflects my personal performance of the history, physical exam, medical decision making, and the department course for this patient. I have also personally directed, reviewed, and agree with the discharge instructions and disposition. Disposition - Clinical Impression Clinical Impression: COPD exacerbation - Disposition Referrals: [facility] [Outside] Disposition Time: 21:30 Condition: STABLE Prescriptions: Albuterol HFA [Ventolin HFA 90 mcg/actuation (8 g)] 1 - 2 puff IH Q6 PRN #1 inhaler PRN Reason: Shortness Of Breath Methylprednisolone [Medrol Dosepak] 4 mg PO ASDIR #1 pkg Instructions: COPD (Chronic Obstructive Pulmonary Disease) (ED) Critical Care Time - Critical Care Note Total Time (in mins): 30 Documented critical care: time excludes all time spent performing seperately billable procedures.
[2016-12-21 21:08] LABS: ALB/GLOB RATIO 1.7 (1.0-2.1); ALKALINE PHOSPHATASE 56 U/L (38-126); ALT/SGPT 35 U/L (21-72); AST/SGOT 33 U/L (17-59); BILIRUBIN,TOTAL 0.3 mg/dl (0.2-1.3); BLOOD UREA NITROGEN 6 mg/dl (9-20); CALCIUM 9.3 mg/dL (8.4-10.2); CARBON DIOXIDE 25 mmol/L (22-30); CHLORIDE 105 mmol/L (98-107); GFR AFRICAN-AMERICAN > 60; GLUCOSE,RANDOM 92 mg/dL (75-110); POTASSIUM 4.1 MMOL/L (3.6-5.0); SODIUM 141 mmol/l (132-148); TOTAL PROTEIN 7.3 G/DL (6.3-8.2)
[2016-12-21 22:07] VITALS: RESP 20
--- NOTE | 2016-12-22 08:42 | CARD ---
APPROVED REPORT EKG Measurement Heart [id number] <Conclusion> Normal sinus rhythm Normal ECG
== END 2016-12-21 22:37 | disposition home or self-care (01) ==
LOC: H.ER 20:04
DX: J44.1 Chronic obstructive pulmonary disease with (acute) exacerbation (principal); F17.210 Nicotine dependence, cigarettes, uncomplicated
CPT/HCPCS: 80053; 85025; 93005; 94640; 96365; 96375; 99283; J2930; J3475

== ENCOUNTER 2017-01-04 10:19 | Emergency (ER) | payer MEDICARE ==
[2017-01-04 10:29] VITALS: BMI 19.6
[2017-01-04] MEDS ORDERED: Albuterol-Ipratrop 3 mg / 0.5 (3 ml) UD IH STA ×3 (10:41→10:42)
[2017-01-04 10:56] LABS: BASO # 0.1 K/uL (0.0-0.2); BASO % 1.2 % (0.0-2.0); EOS # 0.8 K/uL (0.0-0.7); EOS % 15.2 % (0.0-4.0); HEMATOCRIT 44.3 % (35.0-51.0); LYMPH # 1.9 K/uL (1.0-4.3); LYMPH % 35.6 % (20.0-40.0); MEAN CELL VOLUME 88.2 fl (80.0-94.0); MEAN CORPUSCULAR HEMOGLOBIN 28.8 pg (27.0-31.0); MEAN CORPUSCULAR HGB CONC 32.7 g/dL (33.0-37.0); MEAN PLATELET VOLUME 8.3 fl (7.2-11.7); MONO # 0.5 K/uL (0.0-0.8); MONO % 10.1 % (0.0-10.0); NEUT # 2.1 K/uL (1.8-7.0); NEUT % 37.9 % (50.0-75.0); NRBC % 0.4 % (0.0-0.0); RED CELL DISTRIBUTION WIDTH 13.6 % (11.5-14.5); WHITE BLOOD COUNT 5.4 K/uL (4.8-10.8)
--- NOTE | 2017-01-04 11:04 | ED PDOC ---
HPI: SOB/CHF/COPD Time Seen by Provider: 01/04/17 10:35 Chief Complaint (Nursing): Respiratory Distress Chief Complaint (Provider): shortness of breath History Per: Patient History/Exam Limitations: no limitations Onset/Duration Of Symptoms: Days (x 2) Additional Complaint(s): Sergio Edwards is a 66 year old male, with a previous medical history of asthma, who presents to the ED with complaints of shortness of breath associated with a nonproductive cough ongoing for 2 days. He denies any chest pain, fever, chills or improvement with inhaler. PMD: none provide d Past Medical History Reviewed: Historical Data, Nursing Documentation, Vital Signs Vital Signs: Last Vital Signs Temp 96.7 F L 01/04/17 10:28 Pulse 95 H 01/04/17 10:28 Resp 16 01/04/17 10:28 BP 117/82 01/04/17 10:28 Pulse Ox 95 01/04/17 11:05 - Medical History PMH: Asthma, COPD, Pneumonia, Pneumothorax Denies: HIV, Chronic Kidney Disease - Surgical History Surgical History: Tonsillectomy - Family History Family History: States: Unknown Family Hx - Immunization History Hx Tetanus Toxoid Vaccination: No Hx Influenza Vaccination: No Hx Pneumococcal Vaccination: No - Home Medications Home Medications: Ambulatory Orders Medication Instructions Recorded Albuterol HFA [Ventolin HFA 90 1 - 2 puff PO Q4 PRN 11/08/16 mcg/actuation (8 g)] Fluticasone/Salmeterol [Advair 1 each IH BID 11/08/16 250-50 Diskus] Pantoprazole [Protonix EC Tab] 40 mg PO DAILY ect 11/13/16 guaiFENesin [Mucinex LA] 600 mg PO Q12 tab 11/13/16 Methylprednisolone [Medrol Dose 4 mg PO DAILY 11/18/16 Pack (21 tabs)] Tiotropium [place] Inhaler 1 inhaler INH DAILY 11/18/16 [Spiriva Inhalation Handihaler Device] Albuterol HFA [Ventolin HFA 90 1 - 2 puff IH Q6 PRN #1 inhaler 12/21/16 mcg/actuation (8 g)] Methylprednisolone [Medrol Dosepak] 4 mg PO ASDIR #1 pkg 12/21/16 Albuterol HFA [Ventolin HFA 90 2 puff IH Q4H #1 puff 01/04/17 mcg/actuation (8 g)] predniSONE [predniSONE Tab] 10 mg PO TID #15 tab 01/04/17 - Allergies Allergies/Adverse Reactions: Allergies Allergy/AdvReac Type Severity Reaction Status Date / Time No Known Allergies Allergy Verified 11/13/16 18:06 Review of Systems ROS Statement: Except As Marked, All Systems Reviewed And Found Negative Constitutional: Negative for: Fever, Chills Cardiovascular: Negative for: Chest Pain Respiratory: Positive for: Cough, Shortness of Breath. Negative for: Sputum Physical Exam - Reviewed Nursing Documentation Reviewed: Yes Vital Signs Reviewed: Yes - Physical Exam Appears: Positive for: Well, Non-toxic, No Acute Distress Head Exam: Positive for: ATRAUMATIC, NORMAL INSPECTION, NORMOCEPHALIC Skin: Positive for: Normal Color, Warm, DRY Eye Exam: Positive for: EOMI, Normal appearance, PERRL ENT: Positive for: Normal ENT Inspection Neck: Positive for: Normal, Painless ROM Cardiovascular/Chest: Positive for: Regular Rate, Rhythm Respiratory: Positive for: Normal Breath Sounds, Rhonchi, Wheezing (expiratory) . Negative for: Respiratory Distress Gastrointestinal/Abdominal: Positive for: Normal Exam, Bowel Sounds, Soft Back: Positive for: Normal Inspection Extremity: Positive for: Normal ROM Neurologic/Psych: Positive for: Alert, Oriented - Laboratory Results Result Diagrams: 01/04/17 10:51 01/04/17 10:51 - ECG O2 Sat by Pulse Oximetry: 95 (RA) Pulse Ox Interpretation: Normal - Progress Re-evaluation Time: 12:44 Condition: Improved Medical Decision Making Medical Decision Making: Initial Plan: * labs * CXR * duo-neb * solu-medrol * peak flow pre/post treatment * reevaluation Scribe Attestation: Documented by Dahlia Olvera, acting as a scribe for Omar Fay MD. Provider Scribe Attestation: All medical record entries made by the Scribe were at my direction and personally dictated by me. I have reviewed the chart and agree that the record accurately reflects my personal performance of the history, physical exam, medical decision making, and the department course for this patient. I have also personally directed, reviewed, and agree with the discharge instructions and disposition. Disposition - Clinical Impression Clinical Impression: COPD exacerbation - Patient ED Disposition Is Patient to be Admitted: No Counseled Patient/Family Regarding: Studies Performed, Diagnosis, Need For Followup, Rx Given - Disposition Referrals: [facility] [Outside] Disposition: Routine/Home Disposition Time: 12:44 Condition: FAIR Prescriptions: Albuterol HFA [Ventolin HFA 90 mcg/actuation (8 g)] 2 puff IH Q4H #1 puff predniSONE [predniSONE Tab] 10 mg PO TID #15 tab Instructions: COPD (Chronic Obstructive Pulmonary Disease) (ED) Forms: [employer] (Frisian)
[2017-01-04] MEDS ORDERED: Albuterol 0.083% Inhal Sol (2.5 mg/3 mL) UD ONE (11:05)
[2017-01-04 11:07] LABS: ALB/GLOB RATIO 1.8 (1.0-2.1); ALKALINE PHOSPHATASE 55 U/L (38-126); ALT/SGPT 39 U/L (21-72); AST/SGOT 26 U/L (17-59); BILIRUBIN,TOTAL 0.5 mg/dl (0.2-1.3); BLOOD UREA NITROGEN 12 mg/dl (9-20); CALCIUM 9.4 mg/dL (8.4-10.2); CARBON DIOXIDE 27 mmol/L (22-30); CHLORIDE 106 mmol/L (98-107); GFR AFRICAN-AMERICAN > 60; GLUCOSE,RANDOM 86 mg/dL (75-110); POTASSIUM 4.4 MMOL/L (3.6-5.0); SODIUM 142 mmol/l (132-148); TOTAL PROTEIN 7.1 G/DL (6.3-8.2)
[2017-01-04] MEDS ORDERED: Albuterol-Ipratrop 3 mg / 0.5 (3 ml) UD ONE (11:30)
--- NOTE | 2017-01-04 13:16 | RAD ---
HISTORY: SOB COMPARISON: 11/08/2016 TECHNIQUE: Chest PA and lateral FINDINGS: LUNGS: Stable bullous changes in the right lung. No focal infiltrate. PLEURA: No significant pleural effusion identified. No pneumothorax apparent. CARDIOVASCULAR: Normal. OSSEOUS STRUCTURES: No significant abnormalities. VISUALIZED UPPER ABDOMEN: Normal. OTHER FINDINGS: None. IMPRESSION: Stable bullous changes in the right lung. No focal infiltrate.
[2017-01-04 13:33] VITALS: BP 125/78; PULSE 78; RESP 18; TEMP 97.7; O2SAT 98
== END 2017-01-04 13:33 | disposition home or self-care (01) ==
LOC: H.ER 10:19
DX: J44.1 Chronic obstructive pulmonary disease with (acute) exacerbation (principal)
CPT/HCPCS: 71020; 80053; 85025; 94640; 96374; 99282; J2930

== ENCOUNTER 2017-01-26 20:40 | Emergency (ER) | payer MEDICARE ==
[2017-01-26 20:40] VITALS: BMI 19.6
[2017-01-26 20:49] VITALS: BP 121/84; TEMP 98
[2017-01-26] MEDS ORDERED: Albuterol-Ipratrop 3 mg / 0.5 (3 ml) UD INH STA ×2 (21:24→22:52)
[2017-01-26] MEDS ORDERED: Albuterol-Ipratrop 3 mg / 0.5 (3 ml) UD ONE ×2 (21:41→23:10)
[2017-01-26 21:59] LABS: EOS # 0.5 K/uL (0.0-0.7); EOS % 12.8 % (0.0-4.0); HEMATOCRIT 42.6 % (35.0-51.0); LYMPH # 1.7 K/uL (1.0-4.3); LYMPH % 43.5 % (20.0-40.0); MEAN CELL VOLUME 86.4 fl (80.0-94.0); MEAN CORPUSCULAR HEMOGLOBIN 29.1 pg (27.0-31.0); MEAN CORPUSCULAR HGB CONC 33.7 g/dL (33.0-37.0); MEAN PLATELET VOLUME 9.3 fl (7.2-11.7); MONO # 0.4 K/uL (0.0-0.8); MONO % 11.3 % (0.0-10.0); NEUT # 1.2 K/uL (1.8-7.0); NEUT % 31.4 % (50.0-75.0); NRBC % 0.2 % (0.0-0.0); RED CELL DISTRIBUTION WIDTH 13.5 % (11.5-14.5); WHITE BLOOD COUNT 3.9 K/uL (4.8-10.8)
--- NOTE | 2017-01-26 22:09 | ED PDOC ---
HPI: SOB/CHF/COPD Time Seen by Provider: 01/26/17 20:46 Chief Complaint (Nursing): Shortness Of Breath Chief Complaint (Provider): Shortness of breath History Per: Patient History/Exam Limitations: no limitations Onset/Duration Of Symptoms: Days (2x) Current Symptoms Are (Timing): Still Present Severity: Moderate Additional Complaint(s): 66 year old male with a pertinent medical history of COPD presents to the ED with complaints of shortness of breath and wheezing that started 2x days ago, accompanied by a dry cough. He reports that his symptoms worsened today, which is what prompted his visit to the ED today. He denies having chest pain and fevers. Of note: patient states that he has an air pocket on his right lung. PMD: [facility]. Past Medical History Reviewed: Historical Data, Nursing Documentation, Vital Signs Vital Signs: Last Vital Signs Temp 98.0 F 01/26/17 20:46 Pulse 88 01/27/17 00:18 Resp 18 01/27/17 00:18 BP 121/84 01/26/17 20:46 Pulse Ox 95 01/27/17 00:18 - Medical History PMH: Asthma, COPD, Pneumonia, Pneumothorax Denies: HIV, Chronic Kidney Disease - Surgical History Surgical History: Tonsillectomy - Family History Family History: States: Unknown Family Hx - Social History Alcohol: Social - Immunization History Hx Tetanus Toxoid Vaccination: No Hx Influenza Vaccination: No Hx Pneumococcal Vaccination: No - Home Medications Home Medications: Ambulatory Orders Medication Instructions Recorded Albuterol HFA [Ventolin HFA 90 1 - 2 puff PO Q4 PRN 11/08/16 mcg/actuation (8 g)] Pantoprazole [Protonix EC Tab] 40 mg PO DAILY ect 11/13/16 guaiFENesin [Mucinex LA] 600 mg PO Q12 tab 11/13/16 Methylprednisolone [Medrol Dose 4 mg PO DAILY 11/18/16 Pack (21 tabs)] Tiotropium [place] Inhaler 1 inhaler INH DAILY 11/18/16 [Spiriva Inhalation Handihaler Device] Methylprednisolone [Medrol Dosepak] 4 mg PO ASDIR #1 pkg 12/21/16 Albuterol HFA [Ventolin HFA 90 2 puff IH Q4H #1 puff 01/04/17 mcg/actuation (8 g)] Albuterol HFA [Ventolin HFA 90 1 - 2 puff IH Q6 PRN #1 inhaler 01/26/17 mcg/actuation (8 g)] Fluticasone/Salmeterol [Advair 1 each IH BID #1 inh 01/26/17 250-50 Diskus] predniSONE [predniSONE Tab] 10 mg PO TID #15 tab 01/26/17 - Allergies Allergies/Adverse Reactions: Allergies Allergy/AdvReac Type Severity Reaction Status Date / Time No Known Allergies Allergy Verified 11/13/16 18:06 Review of Systems ROS Statement: Except As Marked, All Systems Reviewed And Found Negative Constitutional: Negative for: Fever Cardiovascular: Negative for: Chest Pain Respiratory: Positive for: Cough (dry cough), Shortness of Breath, Wheezing Physical Exam - Reviewed Nursing Documentation Reviewed: Yes Vital Signs Reviewed: Yes - Physical Exam Appears: Positive for: Well, Non-toxic, In Acute Distress (mild respiratory distress) Head Exam: Positive for: ATRAUMATIC, NORMOCEPHALIC Skin: Positive for: Normal Color, Warm, Dry Eye Exam: Positive for: Normal appearance, EOMI, PERRL Cardiovascular/Chest: Positive for: Regular Rate, Rhythm Respiratory: Positive for: Wheezing (diffuse bilateral wheeze at the bases), Respiratory Distress (mild respiratory distress) Extremity: Positive for: Normal ROM Neurologic/Psych: Positive for: Alert, Oriented (3x) - Laboratory Results Result Diagrams: 01/26/17 21:50 01/26/17 22:15 - ECG ECG: Positive for: Interpreted By Me, Viewed By Me ECG Rhythm: Positive for: Normal QRS, Sinus Rhythm (normal sinus rhythm at 91 beats per minute). Negative for: ST/T Changes O2 Sat by Pulse Oximetry: 95 (RA) Pulse Ox Interpretation: Normal - Radiology X-Ray: Interpreted by Me, Viewed By Me X-Ray Interpretation: No Acute Disease, COPD - Progress ED Course And Treament: Pt ambulated with no complains. Re-evaluation Time: 23:40 Condition: Re-examined, Improved Nebulizer Treatments/Peak Flow - Duonebs Number of Bronchodilator Doses given?: 1 - Pre/Post Peak Flow Pre Treatment Peak Flow: 1 Post treatment Peak Flow: 1 - Steroid Treatment Steroid: IV - Clinical Response Clinical Response: Improved Medical Decision Making Medical Decision Makin:46 Initial impression: 66 year old male with COPD exacerbation. Initial plan: * EKG * alcohol serum * b-type natriuretic peptide * BMP * troponin I * CBC * XRay chest one view * duoneb 3ml INH * peak flow pre post treatment * solumedrol 125mg IVP * reevaluation Scribe Attestation: Documented by Cecille Vazquez, acting as a scribe for Néstor Quintero MD. Provider Scribe Attestation: All medical record entries made by the Scribe were at my direction and personally dictated by me. I have reviewed the chart and agree that the record accurately reflects my personal performance of the history, physical exam, medical decision making, and the department course for this patient. I have also personally directed, reviewed, and agree with the discharge instructions and disposition. Disposition - Clinical Impression Clinical Impression: COPD (chronic obstructive pulmonary disease) - Patient ED Disposition Is Patient to be Admitted: No Doctor Will See Patient In The: Office Counseled Patient/Family Regarding: Studies Performed, Diagnosis, Need For Followup - Disposition Referrals: [facility] [Outside] Disposition: Routine/Home Disposition Time: 23:43 Condition: GOOD Additional Instructions: Take your medications as instructed. Follow up with your PCP in 2-3 days. Prescriptions: Albuterol HFA [Ventolin HFA 90 mcg/actuation (8 g)] 1 - 2 puff IH Q6 PRN #1 inhaler PRN Reason: Shortness Of Breath Fluticasone/Salmeterol [Advair 250-50 Diskus] 1 each IH BID #1 inh predniSONE [predniSONE Tab] 10 mg PO TID #15 tab Instructions: COPD (Chronic Obstructive Pulmonary Disease) (ED)
[2017-01-26 22:34] LABS: ALCOHOL SERUM < 10 mg/dl (0-10); BLOOD UREA NITROGEN 9 mg/dl (9-20); CALCIUM 9.2 mg/dL (8.4-10.2); CARBON DIOXIDE 27 mmol/L (22-30); CHLORIDE 106 mmol/L (98-107); GFR AFRICAN-AMERICAN > 60; GLUCOSE,RANDOM 115 mg/dL (75-110); POTASSIUM 3.8 MMOL/L (3.6-5.0); SODIUM 140 mmol/l (132-148)
[2017-01-26] MEDS ORDERED: Fluticasone-Salmeterol 250-50mcg Diskus IH STA (23:39)
[2017-01-27 00:18] VITALS: PULSE 88; RESP 18; O2SAT 95
--- NOTE | 2017-01-27 09:09 | RAD ---
PROCEDURE: CHEST RADIOGRAPH, 1 VIEW HISTORY: dyspnea COMPARISON: Chest radiographs and 01/04/2017 FINDINGS: LUNGS: Once again, there is no definite acute infiltrate appreciated however prominent bullous changes in the mid superior right lung zone without interval change. PLEURA: No pneumothorax or pleural fluid seen. CARDIOVASCULAR: Normal. OSSEOUS STRUCTURES: No significant abnormalities. VISUALIZED UPPER ABDOMEN: Normal. OTHER FINDINGS: None. IMPRESSION: Extensive bullous changes seen at the mid superior right lung zone without interval change compared to 01/04/2017 radiographs. No acute infiltrate or definite pleural effusion identified.
--- NOTE | 2017-01-27 13:11 | CARD ---
APPROVED REPORT EKG Measurement Heart [id number] <Conclusion> Normal sinus rhythm Normal ECG
== END 2017-01-27 00:10 | disposition home or self-care (01) ==
LOC: H.ER 20:40
DX: J44.1 Chronic obstructive pulmonary disease with (acute) exacerbation (principal)
CPT/HCPCS: 71010; 80048; 83880; 84484; 85025; 93005; 94150; 94640; 96374; 99283; G0480; J2930

== ENCOUNTER 2017-07-25 07:25 | Inpatient (IN) | payer MEDICARE ==
[2017-07-25 07:49] VITALS: BMI 21.5
[2017-07-25] MEDS ORDERED: Albuterol-Ipratrop 3 mg / 0.5 (3 ml) UD INH STA ×3 (07:50→08:10)
[2017-07-25 08:40] LABS: BASO % 1.1 % (0.0-2.0); EOS # 0.4 K/uL (0.0-0.7); EOS % 12.7 % (0.0-4.0); HEMOGLOBIN 13.9 g/dL (12.0-18.0); LYMPH # 1.1 K/uL (1.0-4.3); LYMPH % 30.6 % (20.0-40.0); MEAN CELL VOLUME 85.7 fl (80.0-94.0); MEAN CORPUSCULAR HEMOGLOBIN 28.6 pg (27.0-31.0); MEAN CORPUSCULAR HGB CONC 33.4 g/dL (33.0-37.0); MEAN PLATELET VOLUME 8.1 fl (7.2-11.7); MONO # 0.4 K/uL (0.0-0.8); MONO % 10.8 % (0.0-10.0); NEUT # 1.6 K/uL (1.8-7.0); NEUT % 44.8 % (50.0-75.0); RBC 4.86 Mil/uL (4.40-5.90); RED CELL DISTRIBUTION WIDTH 13.1 % (11.5-14.5); WHITE BLOOD COUNT 3.5 K/uL (4.8-10.8)
[2017-07-25 08:51] LABS: BLOOD UREA NITROGEN 8 mg/dl (9-20); CALCIUM 9.3 mg/dL (8.4-10.2); GFR AFRICAN-AMERICAN > 60; GFR NON-AFRICAN AMERICAN > 60
--- NOTE | 2017-07-25 09:03 | RAD ---
PROCEDURE: CHEST RADIOGRAPH, 1 VIEW HISTORY: dyspnea COMPARISON: Chest radiograph dated 06/13/2017. FINDINGS: LUNGS: Large right upper/midlung emphysematous bulla redemonstrated. Hyperinflated lungs. No focal consolidation. PLEURA: No pneumothorax or pleural fluid seen. CARDIOVASCULAR: Atherosclerotic aortic calcifications. Cardiomediastinal silhouette within normal limits. OSSEOUS STRUCTURES: Unchanged. VISUALIZED UPPER ABDOMEN: Normal. OTHER FINDINGS: None. IMPRESSION: Stable appearance of large right mid/ upper lung bulla. No focal consolidation or pleural effusion.
[2017-07-25] MEDS ORDERED: levoFLOXacin 500 mg in D5W 500 MG/100 ML BAG IVPB STA (11:08)
--- NOTE | 2017-07-25 11:08 | ED PDOC ---
HPI: SOB/CHF/COPD Time Seen by Provider: 07/25/17 07:49 Chief Complaint (Nursing): Shortness Of Breath Chief Complaint (Provider): shortness of breath, cough, and wheezing History Per: Patient History/Exam Limitations: no limitations Onset/Duration Of Symptoms: Days (2x) Current Symptoms Are (Timing): Still Present Exacerbating Factor(s): Coughing Associated Symptoms: denies: Fever, Chest Pain, Ankle/Leg Swelling Additional Complaint(s): Sergio Edwards, a 66 year old male with a past medical history of COPD presents to the ED complaining of shortness of breath, cough, and wheezing onset two days ago. Patient took Albuterol and started to developed shortness of breath. Denies chest pain, fever, or leg swelling. Of note: patient goes to the clinic PMD: Provider MORENA Past Medical History Reviewed: Historical Data, Nursing Documentation, Vital Signs Vital Signs: Last Vital Signs Temp 97.8 F 07/27/17 08:02 Pulse 71 07/27/17 08:02 Resp 18 07/27/17 08:02 BP 112/65 07/27/17 08:02 Pulse Ox 95 07/27/17 08:02 - Medical History PMH: Asthma, COPD, Pneumonia, Pneumothorax Denies: HIV, Chronic Kidney Disease - Surgical History Surgical History: Tonsillectomy - Family History Family History: States: Unknown Family Hx - Immunization History Hx Tetanus Toxoid Vaccination: Yes Hx Influenza Vaccination: Yes Hx Pneumococcal Vaccination: Yes - Home Medications Home Medications: Ambulatory Orders Medication Instructions Recorded Albuterol HFA [Ventolin HFA 90 2 puff IH Q6H PRN 07/25/17 mcg/actuation (8 g)] Azithromycin 250 mg PO DAILY #2 tablet 07/27/17 Fluticasone/Salmeterol 250/50 1 puff IH Q12 #1 puff 07/27/17 [Advair Diskus 250/50] predniSONE [predniSONE Tab] 40 mg PO DAILY #2 tab 07/27/17 - Allergies Allergies/Adverse Reactions: Allergies Allergy/AdvReac Type Severity Reaction Status Date / Time No Known Allergies Allergy Verified 11/13/16 18:06 Review of Systems ROS Statement: Except As Marked, All Systems Reviewed And Found Negative Constitutional: Negative for: Fever Cardiovascular: Negative for: Chest Pain Respiratory: Positive for: Cough, Shortness of Breath, Wheezing Musculoskeletal: Negative for: Other (no leg swelling) Physical Exam - Reviewed Nursing Documentation Reviewed: Yes Vital Signs Reviewed: Yes - Physical Exam Appears: Positive for: Well, Non-toxic, No Acute Distress Head Exam: Positive for: ATRAUMATIC, NORMAL INSPECTION, NORMOCEPHALIC Skin: Positive for: Normal Color, Warm, Dry Eye Exam: Positive for: EOMI, Normal appearance, PERRL ENT: Positive for: Normal ENT Inspection Neck: Positive for: Normal, Painless ROM, Supple. Negative for: Decreased ROM Cardiovascular/Chest: Positive for: Regular Rate, Rhythm. Negative for: Murmur , Bradycardia Respiratory: Positive for: Decreased Breath Sounds (diffusive bilaterally ) Gastrointestinal/Abdominal: Positive for: Normal Exam, Bowel Sounds, Soft. Negative for: Tenderness, Guarding Back: Positive for: Normal Inspection. Negative for: L CVA Tenderness, R CVA Tenderness Extremity: Positive for: Normal ROM. Negative for: Tenderness, Pedal Edema, Deformity Neurologic/Psych: Positive for: Alert, Oriented (x3) - Laboratory Results Result Diagrams: 07/25/17 08:20 07/25/17 08:20 - ECG O2 Sat by Pulse Oximetry: 88 (RA) Pulse Ox Interpretation: Normal Nebulizer Treatments/Peak Flow - Duonebs Number of Bronchodilator Doses given?: 3 - Pre/Post Peak Flow Pre Treatment Peak Flow: 100 Post treatment Peak Flow: 100 - Steroid Treatment Steroid: IV - Clinical Response Clinical Response: Unchanged Medical Decision Making Medical Decision Making: Time: 08:07 Initial Impression: COPD with exacerbation Differential Diagnosis includes but is not limited to: Pneumonia and Pneumothorax Initial Plan: --EKG --BMP --CBC --Chest X-ray --Albuterol/Ipratropium 3ml INH --Peak flow pre/post treatment --Reevaluation Time: 11:12 FINDINGS: LUNGS: Large right upper/midlung emphysematous bulla redemonstrated. Hyperinflated lungs. No focal consolidation. PLEURA: No pneumothorax or pleural fluid seen. CARDIOVASCULAR: Atherosclerotic aortic calcifications. Cardiomediastinal silhouette within normal limits. OSSEOUS STRUCTURES: Unchanged. VISUALIZED UPPER ABDOMEN: Normal. OTHER FINDINGS: None. IMPRESSION: Stable appearance of large right mid/ upper lung bulla. No focal consolidation or pleural effusion. Documented by Francine Arrington acting as a scribe for Néstor Quintero MD. All medical record entries made by the Scribe were at my direction and personally dictated by me. I have reviewed the chart and agree that the record accurately reflects my personal performance of the history, physical exam, medical decision making, and the department course for this patient. I have also personally directed, reviewed, and agree with the discharge instructions and disposition. Disposition - Clinical Impression Clinical Impression: COPD (chronic obstructive pulmonary disease) - Patient ED Disposition Is Patient to be Admitted: Yes Discussed With DrBenito: Amelie Youssef Doctor Will See Patient In The: ED Counseled Patient/Family Regarding: Studies Performed, Diagnosis - Disposition Disposition Time: 11:00 Condition: FAIR - Pt Status Changed To: Hospital Disposition Of: Inpatient - Admit Certification Admit to Inpatient:: After my assessment, the patient will require hospitalization for at least two midnights. This is because of the severity of symptoms shown, intensity of services needed, and/or the medical risk in this patient being treated as an outpatient. - POA Present On Arrival: None
[2017-07-25] MEDS ORDERED: levoFLOXacin 500 mg in D5W 500 MG/100 ML BAG IVPB ONE (11:20)
--- NOTE | 2017-07-25 13:17 | CP.PCM.HP ---
History of Present Illness - History of Present Illness History of Present Illness: CC: SOB, Cough HPI: 66 y/o homeless male with PMH of COPD and Hep C (treated 1 year ago) comes to the ED c/o 1 day hx of worsening SOB, cough and wheezing. Patient reports it started last night and symptoms nonresponsive to albuterol. Patient admits productive cough with green sputum but denies any blood. Patient reports increased in frq and severity of cough with increased sputum production and dyspnea. Patient denies fever, dizziness, chest pain, abdominal pain, n/v/d, or dysuria. PMD: [facility] Allergies: none Meds: Albuterol PMH: COPD PSH: chest tubes for pneumothroax in 1980s FamHx: mother side HTN, father side HTN, DM2, Father of mesothelioma SOC: smokes 3-4 cigarettes/day for 1 year, previously 1.5-2 packs/day for 30+ years, consumes 0.5-1 pint of whiskey on the weekends, history of substance abuse in the past, none currently ROS: 12 points assessed and negative unless otherwise reported in HPI ED course: --EKG --BMP: Unremarkable except BUN/Cr: 8/0.7 --CBC: 3.5>13.9/41.6<152 --Chest X-ray: Stable appearance of large right mid/ upper lung bulla. No focal consolidation or pleural effusion. --Albuterol/Ipratropium 3ml INH x3 -- Levoflo 500mg -- Methylpred 125mg IV Present on Admission - Present on Admission Any Indicators Present on Admission: No History of DVT/PE: No History of Uncontrolled Diabetes: No Urinary Catheter: No Decubitus Ulcer Present: No Review of Systems - Constitutional Constitutional: absent: Fever, Headache, Increased Appetite - EENT Eyes: absent: Blurred Vision Ears: absent: Ear Pain Nose/Mouth/Throat: absent: Nasal Congestion, Sore Throat, Facial Pain, Neck Pain - Cardiovascular Cardiovascular: absent: Chest Pain, Leg Edema, Lightheadedness - Respiratory Respiratory: Cough, Dyspnea, Dyspnea on Exertion, Wheezing. absent: Hemoptysis , Chest Congestion - Gastrointestinal Gastrointestinal: absent: Abdominal Pain, Bloating, Vomiting - Genitourinary Genitourinary: absent: Difficulty Urinating, Dysuria - Musculoskeletal Musculoskeletal: absent: Abnormal Gait - Integumentary Integumentary: absent: Skin Ulcer, Jaundice - Neurological Neurological: absent: Abnormal Gait Past Patient History - Infectious Disease Hx of Infectious Diseases: None - Past Medical History & Family History Past Medical History?: Yes - Past Social History Smoking Status: Light Smoker < 10 Cigarettes Daily - CARDIAC Hx Cardiac Disorders: No - PULMONARY Hx Respiratory Disorders: Yes (COPD, Asthma) - NEUROLOGICAL Hx Neurological Disorder: No - HEENT Hx HEENT Problems: No - RENAL Hx Chronic Kidney Disease: No - ENDOCRINE/METABOLIC Hx Endocrine Disorders: No - HEMATOLOGICAL/ONCOLOGICAL Hx Human Immunodeficiency Virus (HIV): No - INTEGUMENTARY Hx Dermatological Problems: No - MUSCULOSKELETAL/RHEUMATOLOGICAL Hx Musculoskeletal Disorders: No Hx Falls: No - GASTROINTESTINAL Hx Gastrointestinal Disorders: No - GENITOURINARY/GYNECOLOGICAL Hx Genitourinary Disorders: No - PSYCHIATRIC Hx Psychophysiologic Disorder: No Hx Substance Use: No - SURGICAL HISTORY Hx Tonsillectomy: Yes - ANESTHESIA Hx Anesthesia: Yes Hx Anesthesia Reactions: No Hx Malignant Hyperthermia: No Meds Allergies/Adverse Reactions: Allergies Allergy/AdvReac Type Severity Reaction Status Date / Time No Known Allergies Allergy Verified 11/13/16 18:06 Physical Exam - Constitutional Appears: No Acute Distress - Head Exam Head Exam: ATRAUMATIC, NORMAL INSPECTION, NORMOCEPHALIC - Eye Exam Eye Exam: EOMI, Normal appearance, PERRL. absent: Scleral icterus - ENT Exam ENT Exam: Mucous Membranes Moist, Normal Exam - Neck Exam Neck exam: Positive for: Normal Inspection - Respiratory Exam Respiratory Exam: Decreased Breath Sounds, Rhonchi, Wheezes. absent: Accessory Muscle Use, Chest Wall Tenderness, Respiratory Distress - Cardiovascular Exam Cardiovascular Exam: REGULAR RHYTHM - GI/Abdominal Exam GI & Abdominal Exam: Normal Bowel Sounds, Soft - Extremities Exam Extremities exam: Positive for: normal inspection - Back Exam Back exam: NORMAL INSPECTION - Neurological Exam Neurological exam: Alert, CN II-XII Intact, Oriented x3 - Psychiatric Exam Psychiatric exam: Normal Affect, Normal Mood - Skin Skin Exam: Dry, Intact, Normal Color, Warm Results - Vital Signs Recent Vital Signs: Last Vital Signs Temp 97.8 F 07/25/17 07:49 Pulse 90 07/25/17 12:08 Resp 16 07/25/17 12:08 BP 132/61 07/25/17 12:08 Pulse Ox 97 07/25/17 11:26 - Labs Result Diagrams: 07/25/17 08:20 07/25/17 08:20 Labs: Laboratory Results - last 24 hr 07/25/17 07/25/17 08:20 08:20 WBC 3.5 L RBC 4.86 Hgb 13.9 Hct 41.6 MCV 85.7 MCH 28.6 MCHC 33.4 RDW 13.1 Plt Count 152 MPV 8.1 Neut % (Auto) 44.8 L Lymph % (Auto) 30.6 Coleman % (Auto) 10.8 H Eos % (Auto) 12.7 H Baso % (Auto) 1.1 Neut # (Auto) 1.6 L Lymph # (Auto) 1.1 Coleman # (Auto) 0.4 Eos # (Auto) 0.4 Baso # (Auto) 0.0 Sodium 143 Potassium 4.1 Chloride 106 Carbon Dioxide 26 Anion Gap 15 BUN 8 L Creatinine 0.7 L Est GFR ( Amer) > 60 Est GFR (Non-Af Amer) > 60 Random Glucose 97 Calcium 9.3 Assessment & Plan - Assessment and Plan (Free Text) Assessment: A/P: 66 y/o male with PMH of COPD admitted on floor for evaluation and treatment of COPD exacerbation Moderate exacerbation of COPD with increased dyspnea, cough and sputum production - Admit to MedSurg - Continue oxygen NC to maintain O2 sat above 92% - Chest X-ray: Stable appearance of large right mid/ upper lung bulla. No focal consolidation or pleural effusion. - Duoneb Q4 PRN - Prednisone 40mg PO daily - Patient is s/p Methylpred 125mg IV x1 - Levofloxacin 750mg IV daily - Patient is s/p Levofloxacin 500mg x1 - Monitor Respiratory status - Influenza and pneumonia vaccine recieved 06/14/17 Current Tobacco use - Consider Nicotine patches - Risk of smoking discussed with patient DVT PPX - Lovenox 40mg SC daily
[2017-07-25] MEDS: Albuterol-Ipratrop 3 mg / 0.5 (3 ml) UD INH PRN (18:49)
--- NOTE | 2017-07-25 19:00 | CARD ---
APPROVED REPORT EKG Measurement Heart [id number] <Conclusion> Normal sinus rhythm Normal ECG
[2017-07-25] MEDS: Fluticasone-Salmeterol 250-50mcg Diskus IH SCH (21:43)
[2017-07-26] MEDS: Albuterol-Ipratrop 3 mg / 0.5 (3 ml) UD INH PRN (02:38)
[2017-07-26] MEDS: Fluticasone-Salmeterol 250-50mcg Diskus IH SCH ×2 (09:49→22:06)
[2017-07-26] MEDS: Enoxaparin 40 mg Syringe SC SCH (09:50)
--- NOTE | 2017-07-26 10:17 | CP.PCM.PN ---
Subjective - Date & Time of Evaluation Date of Evaluation: 07/26/17 Time of Evaluation: 09:15 - Subjective Subjective: Patient seen and examined at bedside. He is sitting comfortably upright in bed with NC at 2L and states he is breathing "a hell of a lot better". He was able to walk to restroom without difficulty and tolerated breakfast. He has persistent cough productive of whitish non-bloody sputum and faint wheeze. No fevers, chest pain, dizziness, nausea or vomiting. Objective - Vital Signs/Intake and Output Vital Signs (last 24 hours): Temp Pulse Resp BP Pulse Ox 98.2 F 79 20 108/69 95 07/26/17 08:17 07/26/17 08:17 07/26/17 08:17 07/26/17 08:17 07/26/17 08:17 - Medications Medications: Current Medications Albuterol/Ipratropium (Duoneb 3 Mg/0.5 Mg (3 Ml) Ud) 3 ml INH RQ4 PRN PRN Reason: Shortness of Breath Last Admin: 07/26/17 02:38 Dose: 3 ml Enoxaparin Sodium (Lovenox) 40 mg SC DAILY [facility] PRN Reason: Protocol Last Admin: 07/26/17 09:50 Dose: 40 mg Levofloxacin/Dextrose (Levaquin 750mg) 750 mg in 150 mls @ 100 mls/hr IVPB DAILY [facility] PRN Reason: Protocol Prednisone (Prednisone Tab) 40 mg PO DAILY [facility] Last Admin: 07/26/17 09:49 Dose: 40 mg Fluticasone/Salmeterol (Advair Diskus 250/50) 1 puff IH Q12 [facility] Last Admin: 07/26/17 09:49 Dose: 1 puff - Labs Labs: 07/25/17 08:20 07/25/17 08:20 - Constitutional Appears: Non-toxic, No Acute Distress - Head Exam Head Exam: ATRAUMATIC, NORMAL INSPECTION, NORMOCEPHALIC - Eye Exam Eye Exam: EOMI, PERRL - ENT Exam ENT Exam: Mucous Membranes Moist - Respiratory Exam Respiratory Exam: Wheezes. absent: Chest Wall Tenderness Additional comments: B/L air entry present but decreased. Faint end expiratory wheezes audible b/l. No rhonchii or signs of respiratory distress. - Cardiovascular Exam Cardiovascular Exam: REGULAR RHYTHM, RRR, +S1, +S2. absent: Murmur - GI/Abdominal Exam GI & Abdominal Exam: Soft, Normal Bowel Sounds. absent: Distended, Tenderness - Extremities Exam Extremities Exam: absent: Calf Tenderness, Pedal Edema - Neurological Exam Neurological Exam: Alert, Awake, Oriented x3 - Psychiatric Exam Psychiatric exam: Normal Affect, Normal Mood - Skin Skin Exam: Dry, Warm Assessment and Plan - Assessment and Plan (Free Text) Assessment: 66 y/o M with PMH of COPD admitted with acute exacerbation of COPD with increased dyspnea and sputum volume. Plan: Acute COPD exacerbation -Improving -S/P methylpredisolone 125mg in ED -Prednisone 40mg PO daily -Duonebs Q4h prn -Advair BID -Levofloxacin 750mg IV daily (Started 07/25/17, Current day 2) -O2 via NC to maintain O2 greater than 92% -Influenza and pneumonia vaccine received 06/14/17 -PFTs as outpatient Current Tobacco use -Smoking 3-4 cigarettes daily -Consider Nicotine patches -Smoking cessation discussed with patient DVT Prophylaxis -Lovenox 40mg SC daily
[2017-07-26] MEDS: levoFLOXacin 750 mg in D5W 750 MG/150 ML BAG IVPB SCH (11:29)
[2017-07-27 08:02] VITALS: BP 112/65; PULSE 71; RESP 18; TEMP 97.8
--- NOTE | 2017-07-27 09:50 | CP.PCM.DIS ---
Provider - Provider Date of Admission: 07/25/17 11:08 Attending physician: Sofy Grigsby MD Primary care physician: KYDr. 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 Time Spent in preparation of Discharge (in minutes): 40 Diagnosis - Discharge Diagnosis (1) COPD exacerbation Status: Resolved Priority: Medium Hospital Course - Lab Results Lab Results: Most Recent Lab Values WBC 3.5 K/uL (4.8-10.8) L 07/25/17 08:20 RBC 4.86 Mil/uL (4.40-5.90) 07/25/17 08:20 Hgb 13.9 g/dL (12.0-18.0) 07/25/17 08:20 Hct 41.6 % (35.0-51.0) 07/25/17 08:20 MCV 85.7 fl (80.0-94.0) 07/25/17 08:20 MCH 28.6 pg (27.0-31.0) 07/25/17 08:20 MCHC 33.4 g/dL (33.0-37.0) 07/25/17 08:20 RDW 13.1 % (11.5-14.5) 07/25/17 08:20 Plt Count 152 K/uL (130-400) 07/25/17 08:20 MPV 8.1 fl (7.2-11.7) 07/25/17 08:20 Neut % (Auto) 44.8 % (50.0-75.0) L 07/25/17 08:20 Lymph % (Auto) 30.6 % (20.0-40.0) 07/25/17 08:20 [place] % (Auto) 10.8 % (0.0-10.0) H 07/25/17 08:20 Eos % (Auto) 12.7 % (0.0-4.0) H 07/25/17 08:20 Baso % (Auto) 1.1 % (0.0-2.0) 07/25/17 08:20 Neut # (Auto) 1.6 K/uL (1.8-7.0) L 07/25/17 08:20 Lymph # (Auto) 1.1 K/uL (1.0-4.3) 07/25/17 08:20 [place] # (Auto) 0.4 K/uL (0.0-0.8) 07/25/17 08:20 Eos # (Auto) 0.4 K/uL (0.0-0.7) 07/25/17 08:20 Baso # (Auto) 0.0 K/uL (0.0-0.2) 07/25/17 08:20 Sodium 143 mmol/l (132-148) 07/25/17 08:20 Potassium 4.1 MMOL/L (3.6-5.0) 07/25/17 08:20 Chloride 106 mmol/L (98-107) 07/25/17 08:20 Carbon Dioxide 26 mmol/L (22-30) 07/25/17 08:20 Anion Gap 15 (10-20) 07/25/17 08:20 BUN 8 mg/dl (9-20) L 07/25/17 08:20 Creatinine 0.7 mg/dl (0.8-1.5) L 07/25/17 08:20 Est GFR ( Amer) > 60 07/25/17 08:20 Est GFR (Non-Af Amer) > 60 07/25/17 08:20 Random Glucose 97 mg/dL (75-110) 07/25/17 08:20 Calcium 9.3 mg/dL (8.4-10.2) 07/25/17 08:20 - Hospital Course Hospital Course: Mr. Edwards, 66 y/o male with PMH of COPD admitted to the [facility] for evaluation and treatment of COPD exacerbation associated with increased dyspnea, Cough and sputum production. Patient was started on 2L NC, Steroids, Duoneb, Advir and Levofloxacin, Chest X-ray: Stable appearance of large right mid/ upper lung bulla, No focal consolidation or pleural effusion. On discharge day, Patient is significantly improved, denies any SOB, chest pain, palpitations, dizziness, or urinary symptoms. Patient agrees with discharge plan. - Date & Time of H&P Date of H&P: 07/25/17 Time of H&P: 13:17 Discharge Exam - Head Exam Head Exam: ATRAUMATIC, NORMAL INSPECTION, NORMOCEPHALIC - Eye Exam Eye Exam: EOMI, Normal appearance, PERRL Pupil Exam: NORMAL ACCOMODATION, PERRL - ENT Exam ENT Exam: Mucous Membranes Moist - Neck Exam Neck exam: Full Rom - Respiratory Exam Respiratory Exam: Wheezes (Improved, Mild scattered ), NORMAL BREATHING PATTERN. absent: Accessory Muscle Use, Chest Wall Tenderness, Decreased Breath Sounds - Cardiovascular Exam Cardiovascular Exam: REGULAR RHYTHM - GI/Abdominal Exam GI & Abdominal Exam: Normal Bowel Sounds - Extremities Exam Extremities exam: normal capillary refill - Back Exam Back exam: NORMAL INSPECTION - Neurological Exam Neurological exam: Alert, CN II-XII Intact, Normal Gait, Oriented x3 - Psychiatric Exam Psychiatric exam: Normal Affect - Skin Skin Exam: Dry, Intact, Normal Color Discharge Plan - Discharge Medications Prescriptions: Azithromycin 250 mg PO DAILY #2 tablet Fluticasone/Salmeterol 250/50 [Advair Diskus 250/50] 1 puff IH Q12 #1 puff predniSONE [predniSONE Tab] 40 mg PO DAILY #2 tab - Follow Up Plan Condition: IMPROVED Disposition: HOME/ ROUTINE Patient education suggested?: Yes Instructions: Exacerbation of COPD (DC) Additional Instructions: Complete course of Azithromycin and Prednisone for 2 additional days Follow up with Dr. Saenz at [facility] on 07/31/17 at 11:20 am ED precautions discussed with patient
[2017-07-27] MEDS: levoFLOXacin 750 mg in D5W 750 MG/150 ML BAG IVPB SCH (10:01)
[2017-07-27] MEDS: Fluticasone-Salmeterol 250-50mcg Diskus IH SCH (10:01)
[2017-07-27] MEDS: Enoxaparin 40 mg Syringe SC SCH (10:01)
--- NOTE | 2017-07-28 07:57 | PQF GENQUE ---
Dr. Grigsby, 2 queries as follows: 1. Please provide a nutritional diagnosis, if known, related to the information below: The following clinical indicators are present in the medical record: BMI; 19.9 : i.e. Underweight or Small Frame 2. Please include the BMI in your note OR: Unable to determine OR: Other explanation of clinical finding EMR: 5ft 9in BMI:19.9 H and P: Homeless male, admitted on floor for evaluation and treatment of COPD exacerbation with Current Tobacco use This form is a permanent part of the medical record Clarification of your documentation is requested to better reflect the severity of illness and intensity of treatment of your patient. Indicators present [] Specify: [] [] Specify: [] [] Specify: [] [] Specify: [] Location in the medical record that reflects the above clinical findings: [] Treatment Provided: [] PHYSICIAN'S RESPONSE Done Based on your medical judgment of the clinical indicators outlined above please clarify the following: [] Practitioner response [] If unable to determine, please check the box, sign and date. Present On Admission (POA) Indicator: [] Present at the time of admission [] Not present at the time of admission [] Clinically Undetermined In responding to this query, please exercise your independent professional judgment. The fact that a question is asked does not imply that any particular answer is desired or expected. Thank you for your clarification on this documentation. If you have any questions please call. * Thank you, Hansa Morales RN ext. #[phone] MTDD
[2017-07-28 12:52] VITALS: O2SAT 88
== END 2017-07-27 14:58 | disposition home or self-care (01) | DRG 192 ==
LOC: H.ER 07:25 → H.ERHOLD 11:08 → H.MEDSURG1 12:35
PROVIDERS: ADMIT Family Medicine Geriatric Medicine; ATTEND Family Medicine Geriatric Medicine
DX: J44.1 Chronic obstructive pulmonary disease with (acute) exacerbation (principal); B19.20 Unspecified viral hepatitis C without hepatic coma; Z72.0 Tobacco use; Z59.0 Homelessness; J45.909 Unspecified asthma, uncomplicated

== ENCOUNTER 2017-08-12 07:34 | Emergency (ER) | payer MEDICARE ==
[2017-08-12 07:34] VITALS: BMI 21.5
[2017-08-12] MEDS ORDERED: Albuterol-Ipratrop 3 mg / 0.5 (3 ml) UD INH STA (08:34)
[2017-08-12] MEDS ORDERED: Albuterol-Ipratrop 3 mg / 0.5 (3 ml) UD ONE (08:43)
[2017-08-12 08:57] LABS: ABG ALLEN TEST YES; ARTERIAL BLOOD GAS HCO3 26.6 mmol/L (21-28); ARTERIAL BLOOD GAS HEMOGLOBIN 14.4 g/dL (11.7-17.4); ARTERIAL BLOOD GAS O2 CAPACITY 19.2 mL/dL (16-24); ARTERIAL BLOOD GAS O2 CONTENT 19.3 ML/dL (15-23); ARTERIAL BLOOD GAS O2 SAT 100.5 % (95-98); ARTERIAL BLOOD GAS PCO2 46 mm/Hg (35-45); ARTERIAL BLOOD GAS PH 7.39 (7.35-7.45); ARTERIAL BLOOD GAS PO2 87 mm/Hg (80-100); ARTERIAL BLOOD GAS TCO2 29.2 mmol/L (22-28)
[2017-08-12 09:18] LABS: BASO % 1.1 % (0.0-2.0); EOS # 0.5 K/uL (0.0-0.7); EOS % 12.5 % (0.0-4.0); HEMOGLOBIN 14.5 g/dL (12.0-18.0); LYMPH % 26.7 % (20.0-40.0); MEAN CELL VOLUME 85.8 fl (80.0-94.0); MEAN CORPUSCULAR HEMOGLOBIN 29.2 pg (27.0-31.0); MEAN PLATELET VOLUME 8.6 fl (7.2-11.7); MONO # 0.4 K/uL (0.0-0.8); MONO % 11.4 % (0.0-10.0); NEUT # 1.8 K/uL (1.8-7.0); NEUT % 48.3 % (50.0-75.0); NRBC % 0.2 % (0.0-0.0); RBC 4.98 Mil/uL (4.40-5.90); RED CELL DISTRIBUTION WIDTH 13.2 % (11.5-14.5); WHITE BLOOD COUNT 3.8 K/uL (4.8-10.8)
[2017-08-12 09:30] LABS: BLOOD UREA NITROGEN 11 mg/dl (9-20); CALCIUM 9.6 mg/dL (8.4-10.2); GFR AFRICAN-AMERICAN > 60; GFR NON-AFRICAN AMERICAN > 60
--- NOTE | 2017-08-12 10:22 | RAD ---
PROCEDURE: CHEST RADIOGRAPH, 1 VIEW HISTORY: dyspnea COMPARISON: Portable chest 07/25/2017. FINDINGS: LUNGS: Gross bullous changes are again seen affecting the superior to mid right lung, unchanged in the interval. No acute infiltrate bilaterally. Limited fibrotic changes again seen scattered bilaterally including hyperinflation. PLEURA: No pneumothorax or pleural fluid seen. CARDIOVASCULAR: Normal. OSSEOUS STRUCTURES: No significant abnormalities. VISUALIZED UPPER ABDOMEN: Normal. OTHER FINDINGS: None. IMPRESSION: Stable COPD pattern including gross right sided bullous changes as discussed above. No acute infiltrate or definite pneumothorax in the interval.
--- NOTE | 2017-08-12 11:26 | ED PDOC ---
HPI: SOB/CHF/COPD Time Seen by Provider: 08/12/17 08:21 Chief Complaint (Nursing): Shortness Of Breath Chief Complaint (Provider): Wheezing History Per: Patient History/Exam Limitations: no limitations Onset/Duration Of Symptoms: Days (x1) Current Symptoms Are (Timing): Still Present Associated Symptoms: denies: Fever, Chest Pain, Ankle/Leg Swelling Additional Complaint(s): Sergio Edwards is a 66 year old male with a past history of COPD, who presents to the ED with complains of wheezing associated with shortness of breath, onset yesterday. Patient reports an associated dry cough and dyspnea, similar to past episodes. He reports he used an inhaler yesterday with minimal relief of symptoms. He denies any chest pain, fevers, or leg swelling. Patient offers no other medical complaints at this time. PND: [facility] Past Medical History Reviewed: Historical Data, Nursing Documentation, Vital Signs Vital Signs: Last Vital Signs Temp 97 F L 08/12/17 08:00 Pulse 107 H 08/12/17 11:32 Resp 14 08/12/17 08:16 BP 148/76 08/12/17 08:00 Pulse Ox 97 08/12/17 11:32 - Medical History PMH: Asthma, COPD, Pneumonia, Pneumothorax Denies: HIV, Chronic Kidney Disease - Surgical History Surgical History: Tonsillectomy - Family History Family History: States: Unknown Family Hx - Social History Current smoker - smoking cessation education provided: Yes - Immunization History Hx Tetanus Toxoid Vaccination: Yes Hx Influenza Vaccination: Yes Hx Pneumococcal Vaccination: Yes - Home Medications Home Medications: Ambulatory Orders Medication Instructions Recorded Azithromycin 250 mg PO DAILY #2 tablet 07/27/17 Fluticasone/Salmeterol 250/50 1 puff IH Q12 #1 puff 07/27/17 [Advair Diskus 250/50] Albuterol HFA [Ventolin HFA 90 2 puff IH Q6H PRN #1 inhaler 08/12/17 mcg/actuation (8 g)] predniSONE [predniSONE Tab] 40 mg PO DAILY 5 Days tab 08/12/17 - Allergies Allergies/Adverse Reactions: Allergies Allergy/AdvReac Type Severity Reaction Status Date / Time No Known Allergies Allergy Verified 08/12/17 08:00 Review of Systems ROS Statement: Except As Marked, All Systems Reviewed And Found Negative Constitutional: Negative for: Fever Cardiovascular: Negative for: Chest Pain Respiratory: Positive for: Cough (dry), Shortness of Breath (secondary to wheezing), Wheezing Gastrointestinal: Negative for: Vomiting Musculoskeletal: Negative for: Other (leg swelling ) Physical Exam - Reviewed Nursing Documentation Reviewed: Yes Vital Signs Reviewed: Yes - Physical Exam Appears: Positive for: Non-toxic, No Acute Distress Head Exam: Positive for: ATRAUMATIC, NORMAL INSPECTION, NORMOCEPHALIC Skin: Positive for: Normal Color, Warm, Dry Eye Exam: Positive for: EOMI, Normal appearance, PERRL ENT: Positive for: Normal ENT Inspection Neck: Positive for: Normal, Painless ROM Cardiovascular/Chest: Positive for: Regular Rate, Rhythm. Negative for: Murmur Respiratory: Positive for: Wheezing (diffuse bilaterally). Negative for: Respiratory Distress Gastrointestinal/Abdominal: Positive for: Normal Exam, Soft. Negative for: Tenderness Back: Positive for: Normal Inspection. Negative for: L CVA Tenderness, R CVA Tenderness, Vertebral Tenderness Extremity: Positive for: Normal ROM Neurologic/Psych: Positive for: Alert, Oriented - Laboratory Results Result Diagrams: 08/12/17 08:50 08/12/17 08:50 - ECG ECG: Positive for: Interpreted By Sc ECG Rhythm: Positive for: Normal QRS, Normal ST Segment, Sinus Tachycardia Rate: 107 O2 Sat by Pulse Oximetry: 97 (RA) Pulse Ox Interpretation: Normal Medical Decision Making Medical Decision Making: Time: 8:34 Impression: Wheezing Plan: --EKG --Duoneb 3 ml INH --Prednisone 125 mg IVP --Peak Flow Tx Upon provider evaluation patient is medically stable, and requires no further treatment in the ED at this time. Patient will be discharged. Scribe Attestation: Documented by Maribel Corey, acting as a scribe for Néstor Quintero MD Provider Scribe Attestation: All medical record entries made by the Scribe were at my direction and personally dictated by me. I have reviewed the chart and agree that the record accurately reflects my personal performance of the history, physical exam, medical decision making, and the department course for this patient. I have also personally directed, reviewed, and agree with the discharge instructions and disposition. Disposition - Clinical Impression Clinical Impression: COPD (chronic obstructive pulmonary disease) - Patient ED Disposition Is Patient to be Admitted: No Doctor Will See Patient In The: Office Counseled Patient/Family Regarding: Studies Performed, Diagnosis, Need For Followup - Disposition [facility] Disposition: Routine/Home Disposition Time: 11:42 Condition: GOOD Additional Instructions: Take your medications as instructed. Follow up with your PCP in 2 days. Prescriptions: Albuterol HFA [Ventolin HFA 90 mcg/actuation (8 g)] 2 puff IH Q6H PRN #1 inhaler PRN Reason: Shortness Of Breath predniSONE [predniSONE Tab] 40 mg PO DAILY 5 Days tab Instructions: COPD Including Emphysema (DC) - POA Present On Arrival: None
[2017-08-12 12:05] VITALS: BP 121/74; PULSE 86; RESP 16; TEMP 97.9; O2SAT 95
--- NOTE | 2017-08-12 14:26 | CARD ---
APPROVED REPORT EKG Measurement Heart [id number] <Conclusion> Sinus tachycardia with occasional premature ventricular complexes Low voltage QRS Borderline ECG
== END 2017-08-12 12:05 | disposition home or self-care (01) ==
LOC: H.ER 07:34
DX: J44.9 Chronic obstructive pulmonary disease, unspecified (principal); I49.3 Ventricular premature depolarization; F17.200 Nicotine dependence, unspecified, uncomplicated
CPT/HCPCS: 36600; 71045; 80048; 82803; 85025; 93005; 94640; 96374; 99282; J2930

== ENCOUNTER 2017-09-06 15:31 | Emergency (ER) | payer MEDICARE ==
[2017-09-06 15:31] VITALS: BMI 21.5
[2017-09-06] MEDS ORDERED: Albuterol-Ipratrop 3 mg / 0.5 (3 ml) UD INH STA (15:56)
[2017-09-06] MEDS ORDERED: Albuterol-Ipratrop 3 mg / 0.5 (3 ml) UD IH STA (15:56)
--- NOTE | 2017-09-06 16:00 | ED PDOC ---
HPI: SOB/CHF/COPD Time Seen by Provider: 09/06/17 15:44 Chief Complaint (Nursing): Shortness Of Breath Chief Complaint (Provider): Dyspnea History Per: Patient History/Exam Limitations: no limitations Onset/Duration Of Symptoms: Days (today) Current Symptoms Are (Timing): Still Present Additional Complaint(s): Cough and wheezes. States he tried inhaler with no relief. No chest pain, headache, dizziness, nasal congestion. No abd pain. No leg pain, long distance travel, or hormone tx. Feels like her copd exac. Gets oral steroids and nebs in the ER which make him feel better. Past Medical History Reviewed: Nursing Documentation, Vital Signs Vital Signs: Last Vital Signs Temp 97.1 F L 09/06/17 15:37 Pulse 74 09/06/17 15:37 Resp 18 09/06/17 16:00 BP 127/71 09/06/17 15:37 Pulse Ox 94 L 09/06/17 16:01 - Medical History PMH: Asthma, COPD, Pneumonia, Pneumothorax Denies: HIV, Chronic Kidney Disease - Surgical History Surgical History: Tonsillectomy - Family History Family History: States: Unknown Family Hx - Living Arrangements Living Arrangements: With Family - Social History Alcohol: None Drugs: Denies - Immunization History Hx Tetanus Toxoid Vaccination: Yes Hx Influenza Vaccination: Yes Hx Pneumococcal Vaccination: Yes - Home Medications Home Medications: Ambulatory Orders Medication Instructions Recorded Azithromycin 250 mg PO DAILY #2 tablet 07/27/17 Fluticasone/Salmeterol 250/50 1 puff IH Q12 #1 puff 07/27/17 [Advair Diskus 250/50] Albuterol HFA [Ventolin HFA 90 2 puff IH Q6H PRN #1 inhaler 08/12/17 mcg/actuation (8 g)] predniSONE [predniSONE Tab] 40 mg PO DAILY 5 Days tab 08/12/17 Albuterol Sulfate [Proair Hfa] 0.09 mg IH Q6H PRN #2 inh 09/06/17 predniSONE [predniSONE Tab] 20 mg PO BID 5 Days tab 09/06/17 - Allergies Allergies/Adverse Reactions: Allergies Allergy/AdvReac Type Severity Reaction Status Date / Time No Known Allergies Allergy Verified 09/06/17 15:37 Review of Systems ROS Statement: Except As Marked, All Systems Reviewed And Found Negative Respiratory: Positive for: Cough, Shortness of Breath, Wheezing Physical Exam - Reviewed Nursing Documentation Reviewed: Yes Vital Signs Reviewed: Yes - Physical Exam Appears: Positive for: Non-toxic, No Acute Distress Head Exam: Positive for: ATRAUMATIC, NORMAL INSPECTION, NORMOCEPHALIC Skin: Positive for: Normal Color, Warm, DRY Eye Exam: Positive for: EOMI, Normal appearance, PERRL ENT: Positive for: Normal ENT Inspection Neck: Positive for: Normal, Painless ROM Cardiovascular/Chest: Positive for: Regular Rate, Rhythm Respiratory: Positive for: Wheezing (mild on expiration b/l) Gastrointestinal/Abdominal: Positive for: Normal Exam, Bowel Sounds, Soft. Negative for: Tenderness Back: Positive for: Normal Inspection. Negative for: L CVA Tenderness, R CVA Tenderness Extremity: Positive for: Normal ROM Neurologic/Psych: Positive for: Alert, Oriented - ECG ECG: Positive for: Interpreted By Me, Viewed By Me ECG Rhythm: Positive for: Normal QRS, Normal ST Segment, Sinus Rhythm O2 Sat by Pulse Oximetry: 94 - Radiology X-Ray: Read By Radiologist X-Ray Interpretation: No Acute Disease - Progress ED Course And Treament: 1739: Stable. AAOx3. Pain free. Tolerated PO. Breathing better. Disposition - Clinical Impression Clinical Impression: COPD (chronic obstructive pulmonary disease) - Patient ED Disposition Is Patient to be Admitted: No Counseled Patient/Family Regarding: Studies Performed, Diagnosis, Need For Followup - Disposition Referrals: [facility] [Outside] - 09/08/17 Disposition: Routine/Home Disposition Time: 17:39 Condition: STABLE Additional Instructions: Return if not better in 3 days. Prescriptions: Albuterol Sulfate [Proair Hfa] 0.09 mg IH Q6H PRN #2 inh PRN Reason: Wheezing predniSONE [predniSONE Tab] 20 mg PO BID 5 Days tab Instructions: COPD Including Emphysema (DC)
[2017-09-06] MEDS ORDERED: Albuterol-Ipratrop 3 mg / 0.5 (3 ml) UD ONE (16:09)
[2017-09-06 16:26] VITALS: RESP 18
--- NOTE | 2017-09-06 16:42 | RAD ---
HISTORY: dyspnea COMPARISON: Chest radiograph dated 08/12/2017. FINDINGS: LUNGS: Large right mid/ upper lung bulla redemonstrated. No focal consolidation. PLEURA: No significant pleural effusion identified, no pneumothorax apparent. CARDIOVASCULAR: Atherosclerotic aortic calcifications. Cardiomediastinal silhouette within normal limits. OSSEOUS STRUCTURES: No significant abnormalities. VISUALIZED UPPER ABDOMEN: Normal. OTHER FINDINGS: None. IMPRESSION: Stable appearance of right-sided bullous changes. No focal consolidation or pleural effusion.
[2017-09-06 17:55] VITALS: BP 122/76; PULSE 77; TEMP 97.9; O2SAT 98
--- NOTE | 2017-09-07 15:05 | CARD ---
APPROVED REPORT EKG Measurement Heart [id number] <Conclusion> Normal sinus rhythm Normal ECG
== END 2017-09-06 17:56 | disposition home or self-care (01) ==
LOC: H.ER 15:31
DX: J44.9 Chronic obstructive pulmonary disease, unspecified (principal)

== ENCOUNTER 2017-10-06 10:39 | Emergency (ER) | payer MEDICARE ==
[2017-10-06 10:39] VITALS: BMI 21.5
[2017-10-06] MEDS ORDERED: Albuterol-Ipratrop 3 mg / 0.5 (3 ml) UD INH STA ×2 (11:34→14:06)
--- NOTE | 2017-10-06 11:50 | ED PDOC ---
HPI: SOB/CHF/COPD Time Seen by Provider: 10/06/17 11:02 Chief Complaint (Provider): shortness of breath History Per: Patient History/Exam Limitations: no limitations Onset/Duration Of Symptoms: Days (3) Current Symptoms Are (Timing): Still Present Initiating Event: Out Of Medications Quality: Tightness Current Respiratory Medications: Albuterol, Steroid Inhaler Severity: Moderate Location Of Discomfort (Image): 1 - tightness Associated Symptoms: Ankle/Leg Swelling, Dizziness. denies: Sweating, Chest Pain, Leg/Calf Pain Additional Complaint(s): 66yo male hx COPD active smoker presents c/o chest tightness and cough, wheeze/ SOB and out of his ventolin, taking advair BID. Does not occassional LE edema b/ l mostly ankles and feet. Denies history of CHF or heart problems. Past Medical History Reviewed: Historical Data, Nursing Documentation Vital Signs: Last Vital Signs Temp 98.6 F 10/06/17 10:49 Pulse 90 10/06/17 10:49 Resp 17 10/06/17 12:56 BP 117/74 10/06/17 10:49 Pulse Ox 97 10/06/17 11:51 - Medical History PMH: Asthma, COPD, Pneumonia, Pneumothorax Denies: HIV, Chronic Kidney Disease - Surgical History Surgical History: Tonsillectomy - Family History Family History: States: Unknown Family Hx - Social History Current smoker - smoking cessation education provided: Yes - Immunization History Hx Tetanus Toxoid Vaccination: Yes Hx Influenza Vaccination: Yes Hx Pneumococcal Vaccination: Yes - Home Medications Home Medications: Ambulatory Orders Medication Instructions Recorded RX: Azithromycin 250 mg PO DAILY #2 tablet 07/27/17 RX: Fluticasone/Salmeterol 250/50 1 puff IH Q12 #1 puff 07/27/17 [Advair Diskus 250/50] RX: Albuterol HFA [Ventolin HFA 90 2 puff IH Q6H PRN #1 inhaler 08/12/17 mcg/actuation (8 g)] RX: predniSONE [predniSONE Tab] 40 mg PO DAILY 5 Days tab 08/12/17 Albuterol Sulfate [Proair Hfa] 0.09 mg IH Q6H PRN #2 inh 09/06/17 RX: predniSONE [predniSONE Tab] 20 mg PO BID 5 Days tab 09/06/17 RX: Albuterol 0.083% [Albuterol 2.5 mg IH Q4 PRN #20 neb 10/06/17 0.083% Inhal Nalini (2.5 mg/3 ml) UD] RX: Albuterol Sulfate [Proventil 2 puff IH Q4 PRN #1 unit 10/06/17 Hfa] RX: Prednisone 50 mg PO DAILY #4 tab 10/06/17 - Allergies Allergies/Adverse Reactions: Allergies Allergy/AdvReac Type Severity Reaction Status Date / Time No Known Allergies Allergy Verified 09/06/17 15:37 Review of Systems Constitutional: Positive for: Weakness. Negative for: Fever ENT: Negative for: Nose Discharge, Throat Pain Cardiovascular: Positive for: Edema, Light Headedness Respiratory: Positive for: Cough, Shortness of Breath, SOB with Exertion, Wheezing Gastrointestinal: Negative for: Nausea, Vomiting, Abdominal Pain Genitourinary Male: Negative for: Dysuria Musculoskeletal: Negative for: Neck Pain Skin: Negative for: Rash, Lesions, Jaundice Neurological: Positive for: Dizziness. Negative for: Weakness, Numbness, Headache Physical Exam - Reviewed Nursing Documentation Reviewed: Yes Vital Signs Reviewed: Yes - Physical Exam Appears: Positive for: Well, Non-toxic, No Acute Distress Head Exam: Positive for: ATRAUMATIC, NORMAL INSPECTION, NORMOCEPHALIC Skin: Positive for: Normal Color, Warm, DRY Eye Exam: Positive for: EOMI, Normal appearance, PERRL ENT: Positive for: Normal ENT Inspection Neck: Positive for: Normal, Painless ROM Cardiovascular/Chest: Positive for: Regular Rate, Rhythm Respiratory: Positive for: Decreased Breath Sounds, Wheezing. Negative for: Respiratory Distress Gastrointestinal/Abdominal: Positive for: Normal Exam, Soft. Negative for: Tenderness Back: Positive for: Normal Inspection Extremity: Positive for: Normal ROM. Negative for: Pedal Edema, Swelling Neurologic/Psych: Positive for: Alert, Oriented - Laboratory Results Result Diagrams: 10/06/17 11:59 10/06/17 11:59 - ECG ECG: Positive for: Interpreted By Me ECG Rhythm: Positive for: Normal ST Segment, Sinus Rhythm Rate: 88 O2 Sat by Pulse Oximetry: 97 - Radiology X-Ray: Read By Radiologist X-Ray Interpretation: No Acute Disease (chronic bullae) Medical Decision Making Medical Decision Making: workup for COPD exacerbation initiated duoneb abd solumedrol initiated labs reviewed, BNP and trop negative. WBC and chem unremarkable. re-eval 2p improved w good air movement, only trace expiratory wheeze present. Additional duoneb given. Re-eval 245p ambulating well, no hypoxia, tachycardia or respiratory distress. DC from ED. Rec sleeping horizontal for LE trace pedal edema (states he sleeps in chair). Disposition - Clinical Impression Clinical Impression: COPD exacerbation - Patient ED Disposition Is Patient to be Admitted: No Counseled Patient/Family Regarding: Studies Performed, Diagnosis, Need For Followup, Rx Given - Disposition Disposition: Routine/Home Disposition Time: 14:30 Condition: STABLE Additional Instructions: Continue medications as prior prescribed. Add prednisone 50mg daily x4 days. Recommend smoking cessation. Avoid sleeping in chair, trial of OTC compression socks for swelling to lower extremities. Prescriptions: RX: Albuterol 0.083% [Albuterol 0.083% Inhal Nalini (2.5 mg/3 ml) UD] 2.5 mg IH Q4 PRN #20 neb PRN Reason: Wheezing RX: Albuterol Sulfate [Proventil Hfa] 2 puff IH Q4 PRN #1 unit PRN Reason: Shortness Of Breath RX: Prednisone 50 mg PO DAILY #4 tab Instructions: Chronic Obstructive Pulmonary Disease (COPD), Including Emphysema Forms: [facility] (Israeli)
[2017-10-06] MEDS ORDERED: Albuterol 0.083% Inhal Sol (2.5 mg/3 mL) UD ONE (12:03)
[2017-10-06 12:13] LABS: BASO % 0.3 % (0.0-2.0); EOS % 0.1 % (0.0-4.0); HEMOGLOBIN 13.1 g/dL (12.0-18.0); LYMPH # 0.6 K/uL (1.0-4.3); LYMPH % 10.2 % (20.0-40.0); MEAN CELL VOLUME 87.1 fl (80.0-94.0); MEAN CORPUSCULAR HEMOGLOBIN 29.1 pg (27.0-31.0); MEAN CORPUSCULAR HGB CONC 33.5 g/dL (33.0-37.0); MEAN PLATELET VOLUME 8.6 fl (7.2-11.7); MONO # 0.2 K/uL (0.0-0.8); MONO % 4.4 % (0.0-10.0); NEUT # 4.8 K/uL (1.8-7.0); NRBC % 0.1 % (0.0-0.0); RBC 4.5 Mil/uL (4.40-5.90); RED CELL DISTRIBUTION WIDTH 14.9 % (11.5-14.5); WHITE BLOOD COUNT 5.6 K/uL (4.8-10.8)
[2017-10-06 12:33] LABS: ALB/GLOB RATIO 1.6 (1.0-2.1); ALBUMIN 4.2 g/dL (3.5-5.0); ALT/SGPT 42 U/L (21-72); AST/SGOT 33 U/L (17-59); BLOOD UREA NITROGEN 11 mg/dl (9-20); CALCIUM 9.7 mg/dL (8.4-10.2); GFR AFRICAN-AMERICAN > 60; GFR NON-AFRICAN AMERICAN > 60
[2017-10-06 12:46] LABS: B-TYPE NATRIURETIC PEPTIDE 46.8 pg/ml (0-900)
--- NOTE | 2017-10-06 14:09 | RAD ---
HISTORY: COMPARISON: 09/06/2017. TECHNIQUE: Chest PA and lateral FINDINGS: LINES AND TUBES: None. LUNG AND PLEURA: There is redemonstration of a large right mid/ upper lung collapse. The lungs are hyperinflated and there is peribronchial thickening with chronic changes in both lungs. No focal consolidation. HEART AND MEDIASTINUM: The heart is not enlarged. The hilar and mediastinal contours are within normal limits. SKELETAL STRUCTURES: The bony structures are within normal limits for the patient's age. VISUALIZED UPPER ABDOMEN: Normal. OTHER FINDINGS: None. IMPRESSION: No active pulmonary disease. COPD. Stable large right mid/upper bullous changes.
[2017-10-06] MEDS ORDERED: Albuterol-Ipratrop 3 mg / 0.5 (3 ml) UD ONE (14:59)
[2017-10-06 15:54] VITALS: BP 134/78; PULSE 91; RESP 15; TEMP 98; O2SAT 99
--- NOTE | 2017-10-06 20:13 | CARD ---
APPROVED REPORT EKG Measurement Heart [id number] <Conclusion> Normal sinus rhythm Normal ECG
== END 2017-10-06 15:56 | disposition home or self-care (01) ==
LOC: H.ER 10:39
DX: R05 Cough (principal); J44.1 Chronic obstructive pulmonary disease with (acute) exacerbation; F17.200 Nicotine dependence, unspecified, uncomplicated
CPT/HCPCS: 71046; 80053; 83880; 84484; 85025; 93005; 94640; 96374; 99284; J2930

== ENCOUNTER 2017-10-13 16:56 | Emergency (ER) | payer MEDICARE ==
[2017-10-13 16:57] VITALS: BMI 21.5
[2017-10-13] MEDS ORDERED: Albuterol-Ipratrop 3 mg / 0.5 (3 ml) UD INH STA ×2 (17:28→18:17)
--- NOTE | 2017-10-13 17:35 | ED PDOC ---
HPI: SOB/CHF/COPD Chief Complaint (Provider): shortness of breath History Per: Patient History/Exam Limitations: no limitations Onset/Duration Of Symptoms: Hrs Current Symptoms Are (Timing): Still Present Initiating Event: Out Of Medications, Other Exacerbating Factor(s): Other (any type of exertion) Current Respiratory Medications: Albuterol, Other (advair (ran out)) Severity: Moderate Associated Symptoms: Productive Cough (increased clear sputum production). denies: Fever, Chills, Chest Pain, Leg/Calf Pain, Ankle/Leg Swelling, Light- headedness - Risk Factors PE Risk Factors: Neg: Previous DVT, Previous PE, CHF <Lynn Reno - Last Filed: 10/13/17 17:47> <Mallory Thompson - Last Filed: 10/13/17 19:59> Time Seen by Provider: 10/13/17 17:18 Chief Complaint (Nursing): Shortness Of Breath Additional Complaint(s): 66 yr old M presents to ED with complaint of SOB since 10pm last night. PMHx includes asthma/COPD, pneumonia and pneumothorax x 3. Patient reports he has taken 6-8 doses of Ventolin since last night and it has not helped. Exacerbating factors are any type of exertion. Associated symptoms are increased clear sputum production, sore throat and diarrhea x 3 days. Reports he has 82 pack years, 9 yrs ago he cut down to 5 cigarettes daily. Denies hx of CHF, denies lower extremity swelling, chest pain, weakness, dizziness or lightheadedness. PMD: Dr. Saenz at [facility] Allergies: NKDA (Lynn Reno) Past Medical History - Medical History PMH: Asthma, COPD, Pneumonia, Pneumothorax Denies: HIV, Chronic Kidney Disease - Surgical History Surgical History: Tonsillectomy - Family History Family History: States: Unknown Family Hx - Immunization History Hx Tetanus Toxoid Vaccination: Yes Hx Influenza Vaccination: Yes Hx Pneumococcal Vaccination: Yes <Lynn Reno - Last Filed: 10/13/17 17:47> <Mallory Thompson - Last Filed: 10/13/17 19:59> Vital Signs: Last Vital Signs Temp 98.4 F 10/13/17 17:13 Pulse 120 H 10/13/17 17:13 Resp 26 H 10/13/17 17:13 BP 119/74 10/13/17 17:13 Pulse Ox 94 L 10/13/17 17:56 - Home Medications Home Medications: Ambulatory Orders Medication Instructions Recorded Azithromycin 250 mg PO DAILY #2 tablet 07/27/17 Fluticasone/Salmeterol 250/50 1 puff IH Q12 #1 puff 07/27/17 [Advair Diskus 250/50] Albuterol HFA [Ventolin HFA 90 2 puff IH Q6H PRN #1 inhaler 08/12/17 mcg/actuation (8 g)] predniSONE [predniSONE Tab] 40 mg PO DAILY 5 Days tab 08/12/17 Albuterol Sulfate [Proair Hfa] 0.09 mg IH Q6H PRN #2 inh 09/06/17 predniSONE [predniSONE Tab] 20 mg PO BID 5 Days tab 09/06/17 Albuterol 0.083% [Albuterol 0.083% 2.5 mg IH Q4 PRN #20 neb 10/06/17 Inhal Nalini (2.5 mg/3 ml) UD] Albuterol Sulfate [Proventil Hfa] 2 puff IH Q4 PRN #1 unit 10/06/17 Prednisone 50 mg PO DAILY #4 tab 10/06/17 Albuterol 0.083% [Albuterol 3 ml IH Q4 PRN #50 neb 10/13/17 Sulfate 3 Ml] Azithromycin 1 tab PO DAILY #6 tab 10/13/17 Prednisone 50 mg PO DAILY #4 tablet 10/13/17 - Allergies Allergies/Adverse Reactions: Allergies Allergy/AdvReac Type Severity Reaction Status Date / Time No Known Allergies Allergy Verified 10/13/17 17:10 Curb-65 Severity Score - CURB-65 Severity Score Confusion: No Respiratory Rate greater than/equal to 30: No Systolic BP <90 or Diastolic BP less than/equal 60mmHg: No Age >64: Yes Curb-65 Score: 1 Percentage 30-day mortality: 2.7% <Lynn Reno - Last Filed: 10/13/17 17:47> Wells Criteria for PE - Wells Criteria for Pulmonary Embolism Clinical Signs and Symptoms of DVT: No P.E is #1 Diagnosis, or Equally Likely: No Heart Rate >100: Yes Immobilization at least 3 days;Surgery previous 4 weeks: No Previous, objectively diagnosed PE or DVT: No Hemoptysis: No Malignancy w/treatment within 6 months, or palliative: No Total Score: 1.5 <Lynn Reno - Last Filed: 10/13/17 17:47> Review of Systems Constitutional: Negative for: Fever, Chills, Weakness Eyes: Negative for: Vision Change ENT: Positive for: Throat Pain. Negative for: Nose Discharge, Nose Congestion, Throat Swelling Cardiovascular: Negative for: Chest Pain, Edema, Light Headedness Gastrointestinal: Positive for: Diarrhea. Negative for: Nausea, Vomiting, Abdominal Pain Genitourinary Male: Negative for: Dysuria, Frequency Musculoskeletal: Negative for: Neck Pain, Shoulder Pain, Arm Pain Skin: Negative for: Rash, Lesions, Jaundice Neurological: Negative for: Weakness, Confusion, Altered Mental Status, Dizziness <Lynn Reno - Last Filed: 10/13/17 17:47> Physical Exam - Physical Exam Appears: Positive for: Uncomfortable (mild respiratory distress) Head Exam: Positive for: ATRAUMATIC, NORMOCEPHALIC Skin: Positive for: Normal Color, Warm, Dry. Negative for: Pallor Eye Exam: Positive for: EOMI, PERRL ENT: Negative for: Nasal Congestion, Pharyngeal Erythema, Tonsillar Exudate Neck: Positive for: Painless ROM, Supple Cardiovascular/Chest: Positive for: Tachycardia. Negative for: Gallop, Murmur Respiratory: Positive for: Wheezing (expiratory wheeze). Negative for: Crackles , Rales, Rhonchi Pulses-Carotid (L): 2+ Pulses-Carotid (R): 2+ Pulses-Dorsalis Pedis (L): 2+ Pulses-Dorsalis Pedis (R): 2+ Pulses-Radial (L): 2+ Pulses-Radial (R): 2+ Gastrointestinal/Abdominal: Positive for: Bowel Sounds (present), Soft. Negative for: Tenderness Back: Positive for: Normal Inspection Extremity: Positive for: Normal ROM. 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 Negative for: Motor/Sensory Deficits, Facial Droop <Lynn Reno - Last Filed: 10/13/17 17:47> - ECG O2 Sat by Pulse Oximetry: 94 <Lynn Reno - Last Filed: 10/13/17 17:47> - Laboratory Results Result Diagrams: 10/13/17 18:30 10/13/17 18:30 - Radiology X-Ray Interpretation: Other (chronic emphysematous changes, no infiltrates) - Progress Re-evaluation Time: 19:00 Condition: Improved <Mallory Thompson - Last Filed: 10/13/17 19:59> - Progress ED Course And Treament: -Duoneb inhaled with pre/post peak flow measurements -Methylprednisolone 125mg IVP, 2L supplemental O2 via nasal cannula to keep O2 sat > 92% (Lynn Reno) Correction: No supplemental O2. Sat likely low 90s at baseline. (Mallory Thompson) Disposition <Lynn Reno - Last Filed: 10/13/17 17:47> Counseled Patient/Family Regarding: Studies Performed, Diagnosis, Need For Followup, Rx Given - Disposition Disposition: Routine/Home Disposition Time: 19:54 <Mallory Thompson - Last Filed: 10/13/17 19:59> - Clinical Impression Clinical Impression: COPD exacerbation - Disposition [facility] - 10/14/17 Condition: IMPROVED Prescriptions: Albuterol 0.083% [Albuterol Sulfate 3 Ml] 3 ml IH Q4 PRN #50 neb PRN Reason: asthma Azithromycin 1 tab PO DAILY #6 tab Prednisone 50 mg PO DAILY #4 tablet Instructions: Exacerbation of COPD Forms: [facility] [facility] (Bahraini)
[2017-10-13] MEDS ORDERED: Albuterol-Ipratrop 3 mg / 0.5 (3 ml) UD ONE ×3 (17:53→19:22)
[2017-10-13 18:50] LABS: BASO % 0.5 % (0.0-2.0); EOS # 0.3 K/uL (0.0-0.7); EOS % 5.4 % (0.0-4.0); HEMOGLOBIN 14.7 g/dL (12.0-18.0); LYMPH % 17.2 % (20.0-40.0); MEAN CELL VOLUME 87.2 fl (80.0-94.0); MEAN CORPUSCULAR HEMOGLOBIN 29.4 pg (27.0-31.0); MEAN CORPUSCULAR HGB CONC 33.7 g/dL (33.0-37.0); MEAN PLATELET VOLUME 8.5 fl (7.2-11.7); MONO # 0.8 K/uL (0.0-0.8); MONO % 13.8 % (0.0-10.0); NEUT # 3.6 K/uL (1.8-7.0); NEUT % 63.1 % (50.0-75.0); RED CELL DISTRIBUTION WIDTH 14.2 % (11.5-14.5); WHITE BLOOD COUNT 5.7 K/uL (4.8-10.8)
[2017-10-13 19:01] LABS: ALB/GLOB RATIO 1.5 (1.0-2.1); ALBUMIN 4.2 g/dL (3.5-5.0); ALT/SGPT 42 U/L (21-72); AST/SGOT 33 U/L (17-59); BLOOD UREA NITROGEN 11 mg/dl (9-20); CALCIUM 9.7 mg/dL (8.4-10.2); GFR AFRICAN-AMERICAN > 60; GFR NON-AFRICAN AMERICAN > 60
[2017-10-13 19:09] LABS: B-TYPE NATRIURETIC PEPTIDE 47.2 pg/ml (0-900)
[2017-10-13 20:30] VITALS: BP 116/62; PULSE 98; RESP 20; TEMP 98.2; O2SAT 93
--- NOTE | 2017-10-14 08:15 | RAD ---
PROCEDURE: CHEST RADIOGRAPH, 1 VIEW HISTORY: sob COMPARISON: Chest radiographs 10/06/2017. FINDINGS: LUNGS: A massive full occupies chest under 50 percent of the right hemithorax hyperlucent lungs repeat it again seen bilaterally suggesting underlying COPD bilaterally. Limited fibrosis seen at the left base and right perihilar region once again. No pleural effusion or definite pneumothorax bilaterally. Cardiomediastinal silhouette appears stable. No pulmonary vascular congestion. Cardiac size appears normal. PLEURA: As above. CARDIOVASCULAR: As above. OSSEOUS STRUCTURES: No significant abnormalities. VISUALIZED UPPER ABDOMEN: Normal. OTHER FINDINGS: None. IMPRESSION: Extensive COPD with a gross right-sided bulla occupying just under 50 percent of the right hemithorax. No acute infiltrate or pleural effusion bilaterally.
== END 2017-10-13 20:30 | disposition home or self-care (01) ==
LOC: H.ER 16:56
DX: J44.1 Chronic obstructive pulmonary disease with (acute) exacerbation (principal)
CPT/HCPCS: 71045; 80053; 83605; 83880; 85025; 87040; 94640; 96374; 99283; J2930

== ENCOUNTER 2017-10-26 00:42 | Emergency (ER) | payer MEDICARE ==
[2017-10-26 00:42] VITALS: BMI 21.5
[2017-10-26 00:52] VITALS: TEMP 98.9
[2017-10-26] MEDS ORDERED: Naloxone 0.4 mg/ml Inj (Adult) IVP STA (01:01)
[2017-10-26 01:20] LABS: BASO # 0.1 K/uL (0.0-0.2); BASO % 0.5 % (0.0-2.0); EOS # 0.1 K/uL (0.0-0.7); EOS % 0.6 % (0.0-4.0); HEMOGLOBIN 13.7 g/dL (12.0-18.0); LYMPH # 1.3 K/uL (1.0-4.3); LYMPH % 12.6 % (20.0-40.0); MEAN CELL VOLUME 88.1 fl (80.0-94.0); MEAN CORPUSCULAR HEMOGLOBIN 29.3 pg (27.0-31.0); MEAN CORPUSCULAR HGB CONC 33.3 g/dL (33.0-37.0); MEAN PLATELET VOLUME 8.1 fl (7.2-11.7); MONO % 9.5 % (0.0-10.0); NEUT % 76.8 % (50.0-75.0); RBC 4.68 Mil/uL (4.40-5.90); RED CELL DISTRIBUTION WIDTH 13.8 % (11.5-14.5); WHITE BLOOD COUNT 10.5 K/uL (4.8-10.8)
--- NOTE | 2017-10-26 02:22 | ED PDOC ---
HPI: Psych/Substance Abuse Time Seen by Provider: 10/26/17 00:46 Chief Complaint (Nursing): Substance Abuse History/Exam Limitations: other (Caveat: Patient is unresponsive) Additional Complaint(s): 66-year-old male brought in by EMS for possible opioid abuse. Patient is minimally responsive with pinpoint pupils. Oxygen saturation is 70-80 % on room air. PMD: Provider TBD Past Medical History Reviewed: Historical Data, Nursing Documentation, Vital Signs Vital Signs: Last Vital Signs Temp 98.9 F 10/26/17 00:48 Pulse 79 10/26/17 00:48 Resp 16 10/26/17 00:48 BP 132/87 10/26/17 00:48 Pulse Ox 97 10/26/17 00:48 - Medical History PMH: Asthma, COPD, Pneumonia, Pneumothorax Denies: HIV, Chronic Kidney Disease - Surgical History Surgical History: Tonsillectomy - Family History Family History: States: Unknown Family Hx - Immunization History Hx Tetanus Toxoid Vaccination: Yes Hx Influenza Vaccination: Yes Hx Pneumococcal Vaccination: Yes - Home Medications Home Medications: Ambulatory Orders Medication Instructions Recorded Azithromycin 250 mg PO DAILY #2 tablet 07/27/17 Fluticasone/Salmeterol 250/50 1 puff IH Q12 #1 puff 07/27/17 [Advair Diskus 250/50] Albuterol HFA [Ventolin HFA 90 2 puff IH Q6H PRN #1 inhaler 08/12/17 mcg/actuation (8 g)] predniSONE [predniSONE Tab] 40 mg PO DAILY 5 Days tab 08/12/17 Albuterol Sulfate [Proair Hfa] 0.09 mg IH Q6H PRN #2 inh 09/06/17 predniSONE [predniSONE Tab] 20 mg PO BID 5 Days tab 09/06/17 Albuterol 0.083% [Albuterol 0.083% 2.5 mg IH Q4 PRN #20 neb 10/06/17 Inhal Nalini (2.5 mg/3 ml) UD] Albuterol Sulfate [Proventil Hfa] 2 puff IH Q4 PRN #1 unit 10/06/17 Prednisone 50 mg PO DAILY #4 tab 10/06/17 Albuterol 0.083% [Albuterol 3 ml IH Q4 PRN #50 neb 10/13/17 Sulfate 3 Ml] Azithromycin 1 tab PO DAILY #6 tab 10/13/17 Prednisone 50 mg PO DAILY #4 tablet 10/13/17 Naloxone HCl [Narcan] 4 mg NS ONCE PRN #1 spray 10/26/17 - Allergies Allergies/Adverse Reactions: Allergies Allergy/AdvReac Type Severity Reaction Status Date / Time No Known Allergies Allergy Verified 10/13/17 17:10 Review of Systems Review Of Systems: ROS cannot be obtained secondary to pt's inabilty to answer questions. (Caveat: patient is minimally responsive) Physical Exam - Reviewed Nursing Documentation Reviewed: Yes Vital Signs Reviewed: Yes - Physical Exam Appears: Negative for: Well ((+): minimally responsive) Eye Exam: Negative for: Normal appearance ((+): Pinpoint pupils) - Laboratory Results Result Diagrams: 10/26/17 01:17 - ECG O2 Sat by Pulse Oximetry: 97 (RA) Pulse Ox Interpretation: Normal - Critical Care Total Time (In Min): 30 Medical Decision Making Medical Decision Making: Time: 01:01 Plan: - EKG - Alcohol Serum - Drug Screen, Urine - ED Urine Dipstick - CBC (with differentials) - Narcan 0.4 mg IVP STAT - Accucheck Alcohol, Quantiative Reveals 19 mg/dl [high] Patient is noted to be awake and alert with normal Oxygen saturation in RA. Patient is eating [employer]. His nephews are present. Diagnosis is opioid abuse. Upon provider reevaluation patient is feeling better, is medically stable, and requires no further treatment in the ED at this time. Patient will be discharged with Rx for Narcan. Counseling was provided and all questions were answered regarding diagnosis. There is agreement to discharge plan. Return if symptoms persist or worsen. ----- Scribe Attestation: Documented by Zak Jesus, acting as a scribe for Sebastien Liu MD. Provider Scribe Attestation: All medical record entries made by the Scribe were at my direction and personally dictated by me. I have reviewed the chart and agree that the record accurately reflects my personal performance of the history, physical exam, medical decision making, and the department course for this patient. I have also personally directed, reviewed, and agree with the discharge instructions and disposition. Disposition - Clinical Impression Clinical Impression: Opiate overdose - Patient ED Disposition Is Patient to be Admitted: No - Disposition Disposition: Routine/Home Disposition Time: 02:52 Condition: IMPROVED Prescriptions: Naloxone HCl [Narcan] 4 mg NS ONCE PRN #1 spray PRN Reason: opiate overdose Instructions: Narcotic Overdose Forms: [facility] (Tajik)
[2017-10-26 02:47] VITALS: BP 119/73; PULSE 107; RESP 20
[2017-10-26 02:58] VITALS: O2SAT 97
--- NOTE | 2017-10-27 06:14 | CARD ---
APPROVED REPORT EKG Measurement Heart [id number] <Conclusion> Normal sinus rhythm with sinus arrhythmia Indeterminate axis Borderline ECG
== END 2017-10-26 03:03 | disposition home or self-care (01) ==
LOC: H.ER 00:42
DX: T40.601A Poisoning by unspecified narcotics, accidental (unintentional), initial encounter (principal); F11.10 Opioid abuse, uncomplicated; J44.9 Chronic obstructive pulmonary disease, unspecified
CPT/HCPCS: 82948; 85025; 93005; 96374; 99285; G0480; J2310

== ENCOUNTER 2018-04-18 15:33 | Emergency (ER) | payer MEDICARE ==
[2018-04-18 15:33] VITALS: BMI 21.5
[2018-04-18] MEDS ORDERED: Lidocaine 5% Patch TD STA (16:08)
[2018-04-18] MEDS ORDERED: Lidocaine 5% Patch TD ONE (16:16)
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
[2018-04-18 18:48] VITALS: BP 134/68; PULSE 90; RESP 20; TEMP 98
--- NOTE | 2018-04-19 08:25 | RAD ---
Date of service: 04/18/2018 PROCEDURE: Radiographs of the Chest and Right Ribs. HISTORY: Injury RIGHT anterior lower rib COMPARISON: 10/13/2017 chest x-ray TECHNIQUE: Frontal radiograph of the chest and multiple oblique radiographs of the right ribs were obtained. FINDINGS: RIGHT RIBS: No fracture or focal lesion visualized. LUNGS: Stable chronic large bullous lesion in the right mid and upper lung field. Chronic emphysematous changes elsewhere without new infiltrate. No new hilar enlargement. PLEURA: Stable chronic pleural parenchymal changes. No pneumothorax or effusion. CARDIOVASCULAR: Normal cardiac size. No pulmonary vascular congestion. Very mild aortic atherosclerotic calcification present OTHER FINDINGS: None. IMPRESSION: No appreciable rib fracture. Stable large right lung bullous lesion. No pneumothorax or effusion.
[2018-04-19 17:31] VITALS: O2SAT 94
== END 2018-04-18 18:48 | disposition home or self-care (01) ==
LOC: H.ER 15:33
DX: S29.9XXA Unspecified injury of thorax, initial encounter (principal); W22.8XXA Striking against or struck by other objects, initial encounter; Y92.89 Other specified places as the place of occurrence of the external cause; J44.9 Chronic obstructive pulmonary disease, unspecified
CPT/HCPCS: 71101; 96372; 99284; J1885

== ENCOUNTER 2018-04-23 11:18 | Emergency (ER) | payer MEDICARE ==
[2018-04-23 11:21] VITALS: BMI 18.4
[2018-04-23] MEDS ORDERED: Albuterol-Ipratrop 3 mg / 0.5 (3 ml) UD IH STA (11:48)
--- NOTE | 2018-04-23 11:52 | ED PDOC ---
HPI: CCC, URI, Sore Throat Time Seen by Provider: 04/23/18 11:43 Chief Complaint (Nursing): Back Pain Chief Complaint (Provider): Back Pain History Per: Patient Onset/Duration Of Symptoms: Days (1) Associated Symptoms: Cough, Sputum. denies: Fever, Sore Throat Severity: Mild Additional Complaint(s): Cough productive green and blodd tinged sputum x 1 day. Denies fever. Denies chest pain or SOB. Seen recently for contusion to ribs. Denies calf pain or swelling. Past Medical History Reviewed: Historical Data, Nursing Documentation, Vital Signs Vital Signs: Last Vital Signs Temp 97.8 F 04/23/18 11:22 Pulse 104 H 04/23/18 11:22 Resp 16 04/23/18 11:22 BP 145/89 04/23/18 11:22 Pulse Ox 95 04/23/18 11:22 - Medical History PMH: Asthma, COPD, Pneumonia, Pneumothorax Denies: HIV, Chronic Kidney Disease - Surgical History Surgical History: Tonsillectomy - Family History Family History: States: Unknown Family Hx - Immunization History Hx Tetanus Toxoid Vaccination: Yes Hx Influenza Vaccination: Yes Hx Pneumococcal Vaccination: Yes - Home Medications Home Medications: Ambulatory Orders Medication Instructions Recorded Azithromycin 250 mg PO DAILY #2 tablet 07/27/17 Fluticasone/Salmeterol 250/50 1 puff IH Q12 #1 puff 07/27/17 [Advair Diskus 250/50] Albuterol HFA [Ventolin HFA 90 2 puff IH Q6H PRN #1 inhaler 08/12/17 mcg/actuation (8 g)] predniSONE [predniSONE Tab] 40 mg PO DAILY 5 Days tab 08/12/17 Albuterol Sulfate [Proair Hfa] 0.09 mg IH Q6H PRN #2 inh 09/06/17 predniSONE [predniSONE Tab] 20 mg PO BID 5 Days tab 09/06/17 Albuterol 0.083% [Albuterol 0.083% 2.5 mg IH Q4 PRN #20 neb 10/06/17 Inhal Nalini (2.5 mg/3 ml) UD] Albuterol Sulfate [Proventil Hfa] 2 puff IH Q4 PRN #1 unit 10/06/17 Prednisone 50 mg PO DAILY #4 tab 10/06/17 Albuterol 0.083% [Albuterol 3 ml IH Q4 PRN #50 neb 10/13/17 Sulfate 3 Ml] Azithromycin 1 tab PO DAILY #6 tab 10/13/17 Prednisone 50 mg PO DAILY #4 tablet 10/13/17 Naloxone HCl [Narcan] 4 mg NS ONCE PRN #1 spray 10/26/17 Ibuprofen [Motrin Tab] 600 mg PO Q8 PRN #30 tab 04/18/18 Lidocaine 5% [Lidoderm] 1 ea TD DAILY PRN #20 patch 04/18/18 - Allergies Allergies/Adverse Reactions: Allergies Allergy/AdvReac Type Severity Reaction Status Date / Time No Known Allergies Allergy Verified 04/18/18 15:39 Review of Systems ROS Statement: Except As Marked, All Systems Reviewed And Found Negative Constitutional: Negative for: Fever Cardiovascular: Negative for: Chest Pain Respiratory: Positive for: Cough, Hemoptysis. Negative for: Shortness of Breath Physical Exam - Reviewed Nursing Documentation Reviewed: Yes Vital Signs Reviewed: Yes - Physical Exam Appears: Positive for: Non-toxic, No Acute Distress Head Exam: Positive for: ATRAUMATIC, NORMAL INSPECTION, NORMOCEPHALIC Skin: Positive for: Normal Color, Warm, DRY Eye Exam: Positive for: EOMI, Normal appearance, PERRL ENT: Positive for: Normal ENT Inspection Neck: Positive for: Normal, Painless ROM Cardiovascular/Chest: Positive for: Regular Rate, Rhythm Respiratory: Positive for: Rhonchi, Wheezing. Negative for: Respiratory Distress Gastrointestinal/Abdominal: Positive for: Normal Exam, Soft Back: Positive for: Normal Inspection Extremity: Positive for: Normal ROM. Negative for: Calf Tenderness, Swelling Neurologic/Psych: Positive for: Alert, Oriented - Laboratory Results Result Diagrams: 04/23/18 12:10 04/23/18 12:10 - ECG O2 Sat by Pulse Oximetry: 95 (RA) Pulse Ox Interpretation: Normal Medical Decision Making Medical Decision Makin:48 Initial Plan: --EKG --D Dimer --CBC --CMP --Duoneb 3 ml INH --Peak flow pre/post 14:01 --CT Angio Chest/ PE protocol 15:00 --Care endorsed to Dr. Thompson pending CT, reevaluation and final disposition. Disposition - Clinical Impression Clinical Impression: Hemoptysis - Patient ED Disposition Is Patient to be Admitted: Transfer of Care - Disposition Disposition: Transfer of Care Disposition Time: 15:00 Condition: FAIR Forms: [facility] [facility] (Chinese) Patient Signed Over To: Mallory Thompson
[2018-04-23] MEDS ORDERED: Albuterol-Ipratrop 3 mg / 0.5 (3 ml) UD ONE (11:58)
[2018-04-23 12:19] LABS: BASO % 1.1 % (0.0-2.0); EOS # 0.1 K/uL (0.0-0.7); EOS % 2.9 % (0.0-4.0); LYMPH # 0.9 K/uL (1.0-4.3); LYMPH % 23.7 % (20.0-40.0); MEAN CELL VOLUME 89.9 fl (80.0-94.0); MEAN CORPUSCULAR HEMOGLOBIN 29.3 pg (27.0-31.0); MEAN CORPUSCULAR HGB CONC 32.5 g/dL (33.0-37.0); MONO # 0.4 K/uL (0.0-0.8); MONO % 10.6 % (0.0-10.0); NEUT # 2.4 K/uL (1.8-7.0); NEUT % 61.7 % (50.0-75.0); NRBC % 0.1 % (0.0-0.0); RBC 4.78 Mil/uL (4.40-5.90); RED CELL DISTRIBUTION WIDTH 13.7 % (11.5-14.5); WHITE BLOOD COUNT 3.8 K/uL (4.8-10.8)
[2018-04-23 12:27] LABS: ALB/GLOB RATIO 1.5 (1.0-2.1); ALBUMIN 4.7 g/dL (3.5-5.0); ALT/SGPT 32 U/L (21-72); AST/SGOT 30 U/L (17-59); BLOOD UREA NITROGEN 14 mg/dl (9-20); CALCIUM 9.8 mg/dL (8.4-10.2); GFR NON-AFRICAN AMERICAN > 60
--- NOTE | 2018-04-23 13:16 | RAD ---
Date of service: 04/23/2018 HISTORY: Hemoptysis COMPARISON: 10/13/2017 TECHNIQUE: Chest PA and lateral FINDINGS: LINES AND TUBES: None. LUNG AND PLEURA: There is redemonstration of extensive bullous emphysema in the right upper lobe. The lungs are hyperinflated and there is peribronchial thickening with chronic changes in both lungs. No focal consolidation. No pleural effusion or pneumothorax. HEART AND MEDIASTINUM: The heart is not enlarged. No aortic atherosclerotic calcification present. The hilar and mediastinal contours are within normal limits. SKELETAL STRUCTURES: The bony structures are within normal limits for the patient's age. VISUALIZED UPPER ABDOMEN: Normal. OTHER FINDINGS: None. IMPRESSION: No active pulmonary disease. Stable extensive bullous emphysema in the right upper lobe. COPD.
--- NOTE | 2018-04-23 15:15 | ED PDOC ---
- Laboratory Results Result Diagrams: 04/23/18 12:10 04/23/18 12:10 - ECG O2 Sat by Pulse Oximetry: 95 (RA) Pulse Ox Interpretation: Normal Medical Decision Making Medical Decision Makin:00 --Care endorsed to this provider pending CT, reassessment and final disposition. Accession No. 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 Coronal and sagittal reformatted images were created and reviewed. Intravenous contrast dose: 85 cc Visipaque 320 Mean Hounsfield value in the main pulmonary artery: 386.78 Radiation dose: Total exam DLP = 241.25 mGy-cm. This CT exam was performed using one or more of the following dose reduction techniques: Automated exposure control, adjustment of the mA and/or kV according to patient size, and/or use of iterative reconstruction technique. FINDINGS: PULMONARY ARTERIES: Unremarkable. No pulmonary embolism. AORTA: No acute findings. No thoracic aortic aneurysm. No atherosclerotic calcification or mural plaque present. 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 New infiltrate basilar segment right lower lobe likely pneumonia. No suspicious pulmonary nodules or masses identified. PLEURAL SPACES: Unremarkable. No effusion or pneumothorax. HEART: Unremarkable. No cardiomegaly. No significant pericardial effusion. LYMPH NODES: No lymphadenopathy. BONES, CHEST WALL: Unremarkable. No fracture or destructive lesion OTHER FINDINGS: Unremarkable. IMPRESSION: Unremarkable CT pulmonary angiogram. No pulmonary embolus. New right lower lobe infiltrate suspicious for pneumonia. DW pt findings. Pt in no acute distress. At baseline dyspnea for COPD. Denies chest pain. Has minimal cough. Azithro IV dose given. Hr improved without intervention and labs demonstrates mild leukopenia. Sepsis considered but physical appears well and eager to be discharged. Stable for discharge. Scribe Attestation: Documented by Susan Lewis, acting as a scribe for Mallory Thmopson MD Provider Scribe Attestation: All medical record entries made by the Scribe were at my direction and personally dictated by me. I have reviewed the chart and agree that the record accurately reflects my personal performance of the history, physical exam, medical decision making, and the department course for this patient. I have also personally directed, reviewed, and agree with the discharge instructions and disposition. Disposition - Clinical Impression Clinical Impression: Pneumonia - POA Present On Arrival: None - Disposition Referrals: [facility] [Outside] (FOLLOW UP WITH CLINIC TOMORROW. IF YOU GET WORSE OR UNABLE TO FOLLOWUP, RETURN TO ER FOR REEVALUATION.) Disposition: Routine/Home Disposition Time: 17:00 Condition: FAIR Prescriptions: Azithromycin [Zithromax] 250 mg PO DAILY #4 dose Instructions: Community-Acquired Pneumonia, Adult (DC)
[2018-04-23] MEDS ORDERED: Iodixanol 320 MG/ML 100 ML BOTTLE IV ONE (15:51)
[2018-04-23] MEDS ORDERED: Sodium Chloride 0.9% 50 ML IV ONE (15:51)
--- NOTE | 2018-04-23 17:01 | CT ---
Date of service: 04/23/2018 PROCEDURE: CT Chest with contrast (Pulmonary Angiogram) HISTORY: hemoptysis elevated d dimer COMPARISON: 11/11/2016 CT thorax TECHNIQUE: Axial computed tomography images were obtained of the chest in the pulmonary arterial phase of enhancement. Coronal and sagittal reformatted images were created and reviewed. Intravenous contrast dose: 85 cc Visipaque 320 Mean Hounsfield value in the main pulmonary artery: 386.78 Radiation dose: Total exam DLP = 241.25 mGy-cm. This CT exam was performed using one or more of the following dose reduction techniques: Automated exposure control, adjustment of the mA and/or kV according to patient size, and/or use of iterative reconstruction technique. FINDINGS: PULMONARY ARTERIES: Unremarkable. No pulmonary embolism. AORTA: No acute findings. No thoracic aortic aneurysm. No atherosclerotic calcification or mural plaque present. 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 New infiltrate basilar segment right lower lobe likely pneumonia. No suspicious pulmonary nodules or masses identified. PLEURAL SPACES: Unremarkable. No effusion or pneumothorax. HEART: Unremarkable. No cardiomegaly. No significant pericardial effusion. LYMPH NODES: No lymphadenopathy. BONES, CHEST WALL: Unremarkable. No fracture or destructive lesion OTHER FINDINGS: Unremarkable. IMPRESSION: Unremarkable CT pulmonary angiogram. No pulmonary embolus. New right lower lobe infiltrate suspicious for pneumonia.
[2018-04-23] MEDS ORDERED: Azithromycin 500 MG in Sodium Chloride 0.9% 250 ML IVPB ONE (17:15)
[2018-04-23 17:31] VITALS: RESP 18; TEMP 98.3
[2018-04-23] MEDS ORDERED: Azithromycin 500 MG IV IVPB ONE (18:00)
[2018-04-23 20:22] VITALS: BP 121/70; PULSE 78; O2SAT 96
== END 2018-04-23 20:13 | disposition home or self-care (01) ==
LOC: H.ER 11:18
DX: J18.9 Pneumonia, unspecified organism (principal); R04.2 Hemoptysis
CPT/HCPCS: 71046; 71275; 80053; 85025; 85378; 94640; 96374; 99283; J0456; Q9967

== ENCOUNTER 2018-07-31 18:15 | Emergency (ER) | payer MEDICARE ==
[2018-07-31 18:16] VITALS: BMI 20.7
--- NOTE | 2018-07-31 19:42 | ED PDOC ---
HPI: SOB/CHF/COPD Time Seen by Provider: 07/31/18 18:39 Chief Complaint (Nursing): Cough, Cold, Congestion Chief Complaint (Provider): SOB, hip pain History Per: Patient Additional Complaint(s): 67 y/o M with a PMHx of COPD was brought to ED complaining of severe SOB that has been aggravating since being discharged for the same 2 weeks ago. patient reports being compliant on his medications; however, symptoms continue. no fever or chills at thsi time. Pt notes chronic cough. Last admission 2 weeks ago due to COPD exacerbation and large RUL lung bulla. After discharge, pt did not followed up with PMD for further work-up with pulmonary function test and referrals. --Pt unable to walk more than 20 feet, has to stop wan rest for 20 minutes in order to continue walking. Pt denies chest pain, nausea, vomiting, rash, peripheral edema. Additionally, Pt notes worsening pain to LLE, specifically to hip PMD: [place] [facility] Allergies: denied Medications: Albuterol inhaler. -PMHx: COPD, Giant right upper lobe bulla, Bullous emphysema, traumatic pneumothorax back in [place] -PSHx: Left thoracotomy for bleb resection in at [facility] -FHx: Father due to Mesothelioma complications. Mother at old age due to heart attack. -SHx: Pt stopped smoking 8 days ago. Pt has been smoking 4-5 ciagrettes per day for the past few years, pt began smoking at age 14. Pt drink 1 pin of [place] every week (Denies Hx of alcohol withdrawal). 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 Past Medical History Reviewed: Nursing Documentation, Vital Signs Vital Signs: Last Vital Signs Temp 97.4 F L 07/31/18 18:26 Pulse 99 H 07/31/18 18:26 Resp 18 07/31/18 18:26 BP 110/74 07/31/18 18:26 Pulse Ox 93 L 07/31/18 18:26 - Medical History PMH: Asthma, COPD, Pneumonia, Pneumothorax Denies: HIV (denies), Chronic Kidney Disease - Surgical History Surgical History: Tonsillectomy - Family History Family History: States: Unknown Family Hx - Immunization History Hx Tetanus Toxoid Vaccination: Yes Hx Influenza Vaccination: Yes Hx Pneumococcal Vaccination: Yes - Home Medications Home Medications: Ambulatory Orders Medication Instructions Recorded Albuterol 0.083% [Albuterol 0.083% 3 ml IH Q6 PRN 06/30/18 Inhal Nalini (2.5 mg/3 ml) UD] Albuterol Sulfate [Proair Hfa] 2 puff IH Q6 PRN 06/30/18 Guaifenesin [Mucinex] 600 mg PO Q12 7 Days #14 tab.er.12h 07/02/18 Levofloxacin [Levaquin] 750 mg PO DAILY 7 Days #7 tablet 07/02/18 Oseltamivir Cap [Tamiflu Cap] 75 mg PO BID 4 Days #8 capsule 07/02/18 Prednisone 10 mg PO ASDIR 10 Days #10 07/02/18 tab.ds.pk Albuterol HFA [Ventolin HFA 90 2 puff IH [id number] #1 puff 07/25/18 mcg/actuation (8 g)] - Allergies Allergies/Adverse Reactions: Allergies Allergy/AdvReac Type Severity Reaction Status Date / Time ORANGE Allergy RASH Verified 07/31/18 18:26 Curb-65 Severity Score - CURB-65 Severity Score Confusion: No Bun >19mg/dl (>7mmol/L): No Respiratory Rate greater than/equal to 30: No Systolic BP <90 or Diastolic BP less than/equal 60mmHg: No Age >64: No Curb-65 Score: 0 Percentage 30-day mortality: 0.6% Wells Criteria for PE - Wells Criteria for Pulmonary Embolism Clinical Signs and Symptoms of DVT: No P.E is #1 Diagnosis, or Equally Likely: No Heart Rate >100: No Immobilization at least 3 days;Surgery previous 4 weeks: No Previous, objectively diagnosed PE or DVT: No Hemoptysis: No Malignancy w/treatment within 6 months, or palliative: No Total Score: 0 Review of Systems ROS Statement: Except As Marked, All Systems Reviewed And Found Negative Respiratory: Positive for: Shortness of Breath Musculoskeletal: Positive for: Leg Pain Physical Exam - Reviewed Nursing Documentation Reviewed: Yes Vital Signs Reviewed: Yes - Physical Exam Appears: Positive for: Well, Non-toxic, No Acute Distress Head Exam: Positive for: ATRAUMATIC, NORMAL INSPECTION, NORMOCEPHALIC Skin: Positive for: Normal Color, Warm, DRY Eye Exam: Positive for: EOMI, Normal appearance, PERRL ENT: Positive for: Normal ENT Inspection Neck: Positive for: Normal, Painless ROM Cardiovascular/Chest: Positive for: Regular Rate, Rhythm Respiratory: Positive for: CNT, Normal Breath Sounds Gastrointestinal/Abdominal: Positive for: Normal Exam, Soft Back: Positive for: Normal Inspection Extremity: Positive for: Normal ROM Neurologic/Psych: Positive for: Alert, Oriented - ECG O2 Sat by Pulse Oximetry: 93 Medical Decision Making Medical Decision Making: IV access established and diagnostics ordered 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 Case endorsed to BONITA Rose at 2000 pending diagnostic review and re-eval Disposition - Clinical Impression Clinical Impression: COPD (chronic obstructive pulmonary disease) - Patient ED Disposition Is Patient to be Admitted: Transfer of Care - Disposition Disposition: Transfer of Care Disposition Time: 19:46 Condition: STABLE
--- NOTE | 2018-07-31 20:20 | ED PDOC ---
- Laboratory Results Result Diagrams: 07/31/18 20:38 07/31/18 20:38 - ECG O2 Sat by Pulse Oximetry: 93 Medical Decision Making Medical Decision Making: Pt received at 1999 from Mallory PRINCE Discussed case with Family Practice Resident who informed that he had an appointment with Dr Ruiz on 08/31; otherwise, upon his last admission, surgical workup studies were performed but the patient failed to keep his scheduled appointment with Dr Keith. Upon his appoiontment on 08/31, he will be coordinated for further surgery There is no emergent medical treatment necessary or available to this patietn The patient is stable for discharge Disposition Doctor Will See Patient In The: Office Counseled Patient/Family Regarding: Diagnosis - Clinical Impression Clinical Impression: COPD (chronic obstructive pulmonary disease), COPD (chronic obstructive pulmonary disease) with emphysema - POA Present On Arrival: None - Disposition Referrals: [facility] [Outside] Disposition: Routine/Home Disposition Time: 22:14 Condition: STABLE Prescriptions: Acetaminophen [Tylenol] 325 mg PO TID #30 capsule Instructions: Chronic Obstructive Pulmonary Disease (COPD), Including Emphysema, Exacerbation of COPD, COPD Including Emphysema (DC) Forms: [employer] (Dutch)
[2018-07-31 20:47] LABS: INR 0.8
[2018-07-31 20:48] LABS: BASO % 0.3 % (0.0-2.0); EOS # 0.2 K/uL (0.0-0.7); EOS % 2.4 % (0.0-4.0); HEMOGLOBIN 14.8 g/dL (12.0-18.0); LYMPH % 27.7 % (20.0-40.0); MEAN CELL VOLUME 90.7 fl (80.0-94.0); MEAN CORPUSCULAR HEMOGLOBIN 29.4 pg (27.0-31.0); MEAN CORPUSCULAR HGB CONC 32.3 g/dL (33.0-37.0); MEAN PLATELET VOLUME 8.4 fl (7.2-11.7); MONO # 0.6 K/uL (0.0-0.8); MONO % 8.8 % (0.0-10.0); NEUT # 4.5 K/uL (1.8-7.0); NEUT % 60.8 % (50.0-75.0); NRBC % 0.2 % (0.0-0.0); RBC 5.05 Mil/uL (4.40-5.90); RED CELL DISTRIBUTION WIDTH 13.6 % (11.5-14.5); WHITE BLOOD COUNT 7.3 K/uL (4.8-10.8)
[2018-07-31 20:50] LABS: PARTIAL THROMBOPLASTIN TIME 30.3 Seconds (25.6-37.1)
[2018-07-31 20:52] LABS: PROTHROMBIN TIME 9.5 Seconds (9.8-13.1)
[2018-07-31 20:55] LABS: ALB/GLOB RATIO 1.6 (1.0-2.1); ALBUMIN 4.2 g/dL (3.5-5.0); ALT/SGPT 32 U/L (21-72); AST/SGOT 27 U/L (17-59); BLOOD UREA NITROGEN 20 mg/dl (9-20); CALCIUM 9.7 mg/dL (8.4-10.2); GFR NON-AFRICAN AMERICAN > 60
[2018-07-31 21:52] LABS: BARBITURATES, UR NEGATIVE (NEGATIVE); BENZODIAZEPINES, UR NEGATIVE (NEGATIVE); OPIATES, UR NEGATIVE (NEGATIVE); PHENCYCLIDINE, UR NEGATIVE (NEGATIVE)
[2018-08-01 00:11] VITALS: BP 116/78; PULSE 97; RESP 16; TEMP 98.1; O2SAT 95
--- NOTE | 2018-08-01 11:25 | CARD ---
APPROVED REPORT Date of service: 07/31/2018 EKG Measurement Heart [id number] <Conclusion> Sinus tachycardia Right superior axis deviation Abnormal ECG
--- NOTE | 2018-08-01 12:12 | RAD ---
Date of service: 07/31/2018 PROCEDURE: CHEST RADIOGRAPH, 1 VIEW HISTORY: SOB COMPARISON: 07/01/2018 and FINDINGS: LUNGS: Stable, large right upper lobe bulla. PLEURA: No pneumothorax or pleural fluid seen. CARDIOVASCULAR: No aortic atherosclerotic calcification present. Normal. OSSEOUS STRUCTURES: No significant abnormalities. VISUALIZED UPPER ABDOMEN: Normal. OTHER FINDINGS: None. IMPRESSION: No active disease.No significant interval change compared to the prior examination(s).
--- NOTE | 2018-08-01 12:13 | RAD ---
PROCEDURE: Left Hip X-ray Radiographs. HISTORY: Pain. No history of recent/ related trauma provided COMPARISON: None. FINDINGS: BONES: Normal. No fracture. JOINTS: Normal. SOFT TISSUES: Normal. OTHER FINDINGS: None. IMPRESSION: Normal left hip radiographs.
== END 2018-07-31 22:33 | disposition home or self-care (01) ==
LOC: H.ER 18:15
DX: J44.1 Chronic obstructive pulmonary disease with (acute) exacerbation (principal); J43.9 Emphysema, unspecified; Z79.899 Other long term (current) drug therapy; Z87.891 Personal history of nicotine dependence
CPT/HCPCS: 71045; 73501; 80053; 84484; 85025; 85610; 85730; 93005; 99283; G0480